=== PATIENT | female | born 1955 | race Caucasian/White ===

== ENCOUNTER → 2018-04-02 09:16 | Outpatient (CLI) | payer OTHER, SELFPAY ==
[2018-04-02 10:58] LABS: Anion Gap 8 (5-15); BUN 18 mg/dL (7-18); BUN/Creat Ratio 24.7 RATIO (10-20); Calcium,Total 8.4 mg/dL (8.5-10.1); Chloride 107 mmol/L (98-107); Cholesterol 197 mg/dL (200); Creatinine, Serum 0.73 mg/dL (0.55-1.02); EST Glomerular Filtration Rate 86 mL/min (>60); Est Glom Filt Rate - Afr Amer 104 mL/min (>60); Glucose 91 mg/dL (74-106); High Density Lipoprotein 63 mg/dL; Sodium Level 140 mmol/L (136-145); Thyroid Stim Hormone (TSH) 0.79 uIU/mL (0.358-3.74); Triglycerides 84 mg/dL; Very Low Density Lipoprotein 17 mg/dL (5-40)
== END ==
PROVIDERS: Family Provider Family Medicine; PCP Family Medicine; Visit Provider Nurse Practitioner Adult Health
DX: E03.9 Hypothyroidism, unspecified (principal); Z13.220 Encounter for screening for lipoid disorders; Z13.1 Encounter for screening for diabetes mellitus
CPT/HCPCS: 36415; 80048; 80061; 84443

== ENCOUNTER → 2018-05-20 07:16 | Outpatient (CLI) | payer OTHER, SELFPAY ==
--- NOTE | 2018-05-20 07:34 | BI_ITS ---
MAMMOGRAPHY - BILATERAL SCREENING REASON FOR EXAM: Female, 63 years old. Routine annual screening examination. PERTINENT HISTORY: Non-contributory. TECHNIQUE: Digital bilateral breast gaetano (3D mammographic acquisition) in the CC and MLO projections. 2-D mediolateral oblique (MLO) and craniocaudad (CC) views of both breasts were obtained. CAD: Full Field Digital Mammography with Computer Added Detection was performed. COMPARISON: Comparison is made with prior study dated April 16, 2017 and February 03, 2016. FINDINGS: Breast Composition: There are scattered areas of fibroglandular density. There are no dominant masses or suspicious calcifications. Stable small benign-appearing bilateral axillary lymph nodes. No other significant abnormalities are identified. There has been no significant change since the prior study. BI/SCREENING MAMM (CAD), BILAT IMPRESSION: Stable bilateral screening mammogram. Yearly follow-up mammogram recommended. (A) ASSESSMENT CATEGORY: BIRADS Category 2: Benign. A letter regarding these results will be sent to the patient by the facility within 30 days. Approximately 10% of breast cancers are not detected by mammography. A normal mammogram should not delay biopsy of a clinically suspicious abnormality. [id number] Electronically Signed: Real Pickens MD at 11:51 EST Tel [phone], Service support ,
== END ==
PROVIDERS: Family Provider Family Medicine; PCP Family Medicine; Referring Provider Nurse Practitioner Adult Health; Visit Provider Nurse Practitioner Adult Health
DX: Z12.31 Encounter for screening mammogram for malignant neoplasm of breast (principal)
CPT/HCPCS: 77063; 77067

== ENCOUNTER → 2018-11-22 | Outpatient (CLI) | payer OTHER, SELFPAY ==
[2018-11-22 10:25] LABS: Absolute Lymphocyte Count 1.77 X10^3/ul (0.83-4.51); Absolute Neutrophil Count 1.5 X10^3/uL (2.0-7.7); Basophil# 0.01 X10^3/uL; Basophil% 0.3 % (0-1); Eosinophil# 0.17 X10^3/uL; Eosinophils% 4.5 % (0-5); Hematocrit 42.2 % (37-47); Lymphocyte # 1.77 X10^3/ul (4.0); Lymphocyte % 47.1 % (19-41); Mean Corp Hgb Conc 33.2 g/gl (32-36); Mean Corpuscular Hgb 32.3 pg (27.0-32.0); Mean Corpuscular Volume 97.2 fL (81-99); Mean Platelet Vol. 11.2 fl (6.2-12.0); Monocyte# 0.32 X10^3/uL; Monocyte% 8.5 % (0-10); Neutrophil # 1.49 X10^3/uL (2.7-7.7); Neutrophil % 39.6 % (47-70); Platelet Count 240 K/mm3 (150-450); RBC Distribution Width CV 12.6 % (11.6-14.6); RBC Distribution Width SD 43.8 fl (35.1-43.9); Red Blood Count 4.34 M/mm3 (4.2-5.4); White Blood Count 3.8 K/mm3 (4.4-11.0)
[2018-11-22 10:37] LABS: POSITIVE COUNT NO; POSITIVE DIFFERENTIAL NO; POSITIVE MORPHOLOGY NO
[2018-11-22 10:38] LABS: Color, Urine Yellow (Yellow); Glucose, Dipstick Normal (Normal); Ketone-Dipstick Negative (Negative); Leukocyte Esterase-Dipstick 25 /ul (Negative); Nitrite-Dipstick Negative (Negative); Occult Blood-Urine 10 /ul (Negative); Protein-Dipstick Negative (Negative); Specific Gravity, Urine 1.025 (1.002-1.030); Urine Bilirubin Dipstick Negative (Negative); Urine Clarity Clear (Clear); Urine Urobilinogen Normal (Normal)
[2018-11-22 10:38] LABS: AST(SGOT) 14 U/L (15-37); Alanine Aminotransfer ALT/SGPT 18 U/L (13-56); Albumin, Serum 3.5 g/dL (3.2-5.0); Alkaline Phosphatase 61 U/L (45-117); Bilirubin, Direct 0.14 mg/dL (0.00-0.30); CRP, High Sensitivity Cardiac 3.52 mg/L; EST Glomerular Filtration Rate 77 mL/min (>60); Est Glom Filt Rate - Afr Amer 93 mL/min (>60); Globulin 3.9 g/dL (2.2-4.2); Protein, Total 7.4 g/dL (6.4-8.2)
[2018-11-22 10:41] LABS: Erythrocyte Sedimentation Rate 13 mm/hr (0-30)
[2018-11-24 16:22] LABS: Complement C3 125 mg/dL (82-167)
[2018-11-25 14:52] LABS: Anti-dsDNA Ab 1 IU/mL (0-9)
== END | disposition home or self-care (01) ==
LOC: MTLAB 08:22
PROVIDERS: Family Provider Family Medicine; PCP Family Medicine; Referring Provider Family Medicine; Visit Provider Family Medicine
DX: M06.4 Inflammatory polyarthropathy (principal); Z79.899 Other long term (current) drug therapy; R76.0 Raised antibody titer
CPT/HCPCS: 36415; 80076; 81002; 82565; 85025; 85652; 86141; 86160; 86225

== ENCOUNTER → 2019-05-26 12:00 | Outpatient (CLI) | payer MEDICARE, SELFPAY ==
--- NOTE | 2019-05-26 12:05 | BI_ITS ---
MAMMOGRAPHY - BILATERAL SCREENING REASON FOR EXAM: Female, 64 years old. Routine annual screening examination. PERTINENT HISTORY: Non-contributory. TECHNIQUE: Digital bilateral breast millicent (3D mammographic acquisition) in the CC and MLO projections. 2-D mediolateral oblique (MLO) and craniocaudad (CC) views of both breasts were obtained. CAD: Full Field Digital Mammography with Computer Added Detection was performed. COMPARISON: Comparison is made with prior study dated May 20, 2018 and April 16, 2017. FINDINGS: Breast Composition: There are scattered areas of fibroglandular density. There are no dominant masses or suspicious calcifications. There is a 6.7 mm well-defined nodule in the axillary region of the left breast most likely reflecting a small lymph node. No other significant abnormalities are identified. There has been no significant change since the prior study. BI/SCREEN MAMM (CAD) W/MILLICENT BILAT IMPRESSION: Stable bilateral screening mammogram. Yearly follow-up mammogram recommended. (A) ASSESSMENT CATEGORY: BIRADS Category 2: Benign. A letter regarding these results will be sent to the patient by the facility within 30 days. Approximately 10% of breast cancers are not detected by mammography. A normal mammogram should not delay biopsy of a clinically suspicious abnormality. [id number] Electronically Signed: Real Pickens, at 14:00 EST , Service support ,
== END ==
PROVIDERS: Family Provider Family Medicine; PCP Family Medicine; Referring Provider Nurse Practitioner Adult Health; Visit Provider Nurse Practitioner Adult Health
DX: Z12.31 Encounter for screening mammogram for malignant neoplasm of breast (principal)
CPT/HCPCS: 77063; 77067

== ENCOUNTER 2020-03-25 12:11 | Emergency (ER) | payer MEDICARE, SELFPAY ==
[2020-03-25 12:11] VITALS: BP 128/69; PULSE 94; RESP 16; TEMP 36.3; O2SAT 96; BMI 29.2
--- NOTE | 2020-03-25 12:22 | RAD_ITS ---
STUDY: X-RAY - LEFT WRIST REASON FOR EXAM: Female, 64 years old. Fell, pain TECHNIQUE: History view(s) of the wrist were obtained. COMPARISON: None. FINDINGS: Comminuted nondisplaced fracture of the distal radial metaphysis with extension to the articular surface. Avulsion fracture of the ulnar styloid. Normal radiocarpal articulation. Normal distal radioulnar articulation. Normal carpal bones. Normal carpal articulations. Normal carpometacarpal articulation of the thumb. Normal second through fifth carpometacarpal articulations. Normal visualized metacarpal bones. Soft tissue swelling. RAD/Wrist min 3 Views IMPRESSION: Nondisplaced condylar fracture of the distal radial metaphysis with extension of the articular surface. Avulsion fracture of the ulnar styloid. Soft tissue swelling. Electronically Signed: Real Pickens, at 12:43 EST , Service support ,
[2020-03-25] MEDS: HYDROmorphone 1 MG/ML Syringe IV (12:42)
--- NOTE | 2020-03-25 13:45 | ED.DCSUM_ITS ---
History of Present Illness Chief Complaint: Upper Extremity Injury Narrative: Patient sustained a mechanical fall while walking. She fell on her left wrist. She has no other injury. No head injury or loss consciousness Past Medical History - Allergies and Home Meds Allergies/Adverse Reactions: Allergies No Known Allergies Allergy (Verified 03/25/20 12:16) Primary Care Physician: Chepe Talamantes MD [Primary Care Provider] - Past Medical History: - - Noncontributory Smoking Status: Unknown if ever smoked Review of Systems General: Reports: - - No head injury no loss consciousness Musculoskeletal: Reports: Extremity Pain Skin: Denies: Wounds Neurological: Denies: Weakness, Parasthesia Hematologic: Denies: Easy bruising, Easy bleeding Physical Exam Vital Signs/Narrative: Vital Signs Temp Pulse Resp BP Pulse Ox 03/25/20 12:11 97.3 F L 94 16 128/69 H 96 General: Well nourished, Well developed Head: - - No C-spine tenderness no head injury ENT: Moist mucous membranes Neck: Supple Cardiovascular: Regular rate, Regular rhythm Respiratory: No distress Back: Normal Inspection Extremities: - - There is tenderness over the distal radius no obvious defo rmity. Skin: Normal color Neurological: Normal Strength, Normal Sensation Diagnostic/Tx/Re-eval Wrist x-ray read by me shows a distal radius fracture no displacement normal height - Medical Decision Making Patient was splinted I talked to orthopedics and she will be seen outpatient Procedures Procedure(s): Ortho-Glass splinting. An AP volar Ortho-Glass splint was placed by me ED Disposition - Plan for ED Patient: Disposition: Home or Assisted Living Diagnosis: Colles' fracture Instructions: ED WRIST FRACTURE General Prescriptions: Oxycodone HCl/Acetaminophen [Percocet 5/325] 1 tab PO Q6H PRN PRN 3 Days #12 tab PRN Reason: Pain Prescription Printed Referrals: Alexsander Wilson DO [STAFF PHYSICIAN] - 3-5 Days
== END 2020-03-25 14:00 | disposition home or self-care (01) ==
PROVIDERS: Emergency Provider Emergency Medicine; PCP Family Medicine
DX: S52.532A Colles' fracture of left radius, initial encounter for closed fracture (principal); W19.XXXA Unspecified fall, initial encounter; Y93.01 Activity, walking, marching and hiking; Y92.9 Unspecified place or not applicable
CPT/HCPCS: 29125; 73110; 96374; 99283

== ENCOUNTER 2020-03-29 13:44 | Day surgery (SDC) | payer MEDICARE, SELFPAY ==
[2020-03-29] VITALS (8 sets, daily range): BP systolic 106–143; BP diastolic 71–85; PULSE 76–91; RESP 16; TEMP 36.1–36.5; O2SAT 92–96; BMI 29.3
[2020-03-29] MEDS: Lactated Ringers 1,000 ML 100 ML IV (14:15)
[2020-03-29] MEDS: Cefazolin 2 GM in 0.9% Normal Saline 100 ML IV (17:07)
--- NOTE | 2020-03-29 17:15 | RAD_ITS ---
STUDY: X-RAY - LEFT WRIST REASON FOR EXAM: ORIF left wrist fracture. TECHNIQUE: 6 intraoperative images of the wrist were obtained. COMPARISON: Radiographs 03/25/2020. FINDINGS: There is an orthopedic plate and screws transfixing a distal radial fracture in anatomical alignment and position. Electronically Signed: Michael Gray MD at 14:56 EST Tel , Service support , RAD/Wrist min 3 Views
[2020-03-29] MEDS: Acetaminophen 500 MG Tablet 1000 MG PO (18:20)
--- NOTE | 2020-03-29 18:20 | PCM.OP.PRO ---
Procedure Report Date of Procedure: 03/29/20 Preoperative diagnosis: Left distal radius fracture comminuted Talamantes, 4 part Preoperative diagnosis: Same Operation: Open reduction internal fixation left distal radius fracture Surgeon: Dr. Arthur Webster Manager Software Development: Madeleine Bar PA-C Anesthesia general, axillary N block Anesthesiologist: Dr. Cannon Medications: Ancef Complications: None EBL: Less than 20 Indications for surgery: Please refer to dictated history and physical exam technical staff assistant, physician research study assistant was vital throughout the entire case. She help with patient positioning, reduction of fracture, maintenance of fracture reduction, exposure, plate and screw application and insertion, wound closure. Also with bandage and splint application. Without college sports assistant surgical time would have been increased. Surgical outcome could have been less optimal. Procedure: After obtaining appropriate informed consent patient was taken to the operating room. Appropriate timeout was performed. Well-padded tourniquet applied to the operative upper arm. Ancef given IV. SCDs on lower extremities. Patient placed under general anesthesia. Reduction was attempted. Adequate closed reduction could not be obtained or maintained. Operative upper extremity was prepped padded draped in usual orthopedic sterile fashion for the procedure. Tourniquet was applied to 250 mmHg after the limb was exsanguinated. Volar approach was carried out longitudinally just over the FCR tendon. Careful dissection through skin subcutaneous tissue brought us down onto the FCR tendon. We took the FCR tendon ulnarly and the radial artery and soft tissues radially. This brought us down onto the pronator quadratus. This was sharply dissected off the bone radially. Fracture site was identified. Multiple fracture fragments were identified felt to be at least a 4 part fracture we then irrigated. Traction and manipulation with the help of the research study assistant, fracture was nearly anatomically reduced. Volar AccuMed, Accu lock narrow long left VDR plate applied. And verified radiographically. Held in place with 2 K wires. We filled the distal row with locking screws in the plate under standard technique 6, 2.3 mm fully threaded locking screws were utilized. 1 screw had been placed at the slotted hole in the proximal plate, 3.5 mm appropriate length. Applied the plate to the bone proximally and held it in the slotted hole with one screw, nonlocking screw. X-ray taken AP lateral and oblique showing very nice reduction and placement of the hardware. 2 further nonlocking screws were placed in the proximal plate. We verified our reduction under multiple x-ray views multiple, many of which were saved. Screw guide system for the plate removed. Wound was irrigated. Tourniquet let down. Bleeding controlled with the Bovie. No undue bleeding noted. Pronator quadratus repaired with 2-0 Vicryl over the plate. Skin repaired with interrupted inverted 2-0 Vicryl. Skin prep and Steri-Strips applied. Well-padded volar splint and dorsal splint applied. Sling applied. She was awoken from her anesthetic and transferred back to room bed in recovery room in satisfactory condition. This note was generated with [employer] dictation software. It may contain incorrect words, spelling, and punctuation that were not noted in checking the note before signing.
== END 2020-03-29 20:32 | disposition home or self-care (01) ==
LOC: SDC 13:47 → AC 13:48
PROVIDERS: PCP Family Medicine; Referring Provider Orthopaedic Surgery; Visit Provider Orthopaedic Surgery
PROC: (CPT 25607; principal; 2020-03-29 15:15)
DX: S52.542A Smith's fracture of left radius, initial encounter for closed fracture (principal); W01.0XXA Fall on same level from slipping, tripping and stumbling without subsequent striking against object, initial encounter; Y93.9 Activity, unspecified; Y92.9 Unspecified place or not applicable
CPT/HCPCS: 01830; 25607; 73110; 76000; C1713; J7120; J2405

== ENCOUNTER → 2020-06-14 11:01 | Outpatient (CLI) | payer MEDICARE, SELFPAY ==
[2020-03-29 14:10] VITALS: BMI 29.3
[2020-06-14 13:20] LABS: Anion Gap 5 (5-15); BUN 14 mg/dL (7-18); BUN/Creat Ratio 19.4 RATIO (10-20); Calcium,Total 8.9 mg/dL (8.5-10.1); Chloride 106 mmol/L (98-107); Cholesterol 226 mg/dL (200); Creatinine, Serum 0.72 mg/dL (0.55-1.02); EST Glomerular Filtration Rate 86 mL/min (>60); Est Glom Filt Rate - Afr Amer 104 mL/min (>60); Glucose 80 mg/dL (74-106); High Density Lipoprotein 73 mg/dL; Potassium 4.2 mmol/L (3.5-5.1); Sodium Level 141 mmol/L (136-145); Thyroid Stim Hormone (TSH) 0.86 uIU/mL (0.358-3.74); Triglycerides 69 mg/dL; Very Low Density Lipoprotein 14 mg/dL (5-40)
== END ==
PROVIDERS: PCP Family Medicine; Referring Provider Nurse Practitioner Adult Health; Visit Provider Nurse Practitioner Adult Health
DX: E03.9 Hypothyroidism, unspecified (principal); Z13.220 Encounter for screening for lipoid disorders; Z13.1 Encounter for screening for diabetes mellitus
CPT/HCPCS: 36415; 80048; 80061; 84443

== ENCOUNTER → 2020-07-08 11:21 | Outpatient (CLI) | payer MEDICARE, SELFPAY ==
[2020-03-29 14:10] VITALS: BMI 29.3
--- NOTE | 2020-07-08 11:24 | BI_ITS ---
MAMMOGRAPHY - BILATERAL SCREENING REASON FOR EXAM: Female, 65 years old. Routine annual screening examination. PERTINENT HISTORY: Non-contributory. TECHNIQUE: Digital bilateral breast millicent (3D mammographic acquisition) in the CC and MLO projections. 2-D mediolateral oblique (MLO) and craniocaudad (CC) views of both breasts were obtained. CAD: Full Field Digital Mammography with Computer Added Detection was performed. COMPARISON: Comparison is made with prior study dated 05/26/2019 and 05/20/2018. FINDINGS: Breast Composition: There are scattered areas of fibroglandular density. There are no dominant masses or suspicious calcifications. Stable 6.7 mm well-defined nodule in the axillary region of the left breast most likely representing a small lymph node. No other significant abnormalities are identified. There has been no significant change since the prior study. BI/SCRN MAMM (CAD)W/MILLICENT BILAT IMPRESSION: Stable bilateral screening mammogram. Yearly follow-up mammogram recommended. (A) ASSESSMENT CATEGORY: BIRADS Category 2: Benign. A letter regarding these results will be sent to the patient by the facility within 30 days. Approximately 10% of breast cancers are not detected by mammography. A normal mammogram should not delay biopsy of a clinically suspicious abnormality. [id number] Electronically Signed: Real Pickens MD at 12:25 EST , Service support ,
== END ==
PROVIDERS: PCP Family Medicine; Referring Provider Nurse Practitioner Adult Health; Visit Provider Nurse Practitioner Adult Health
DX: Z12.31 Encounter for screening mammogram for malignant neoplasm of breast (principal)
CPT/HCPCS: 77063; 77067

== ENCOUNTER → 2020-12-23 08:13 | Outpatient (CLI) | payer MEDICARE, SELFPAY ==
[2020-03-29 14:10] VITALS: BMI 29.3
--- NOTE | 2020-12-23 08:16 | US_ITS ---
EXAM: US RETROPERITONEAL COMPLETE, RENAL CLINICAL INDICATION: right flank pain and elevated ESR TECHNIQUE: Grayscale and color Doppler sonographic evaluation of the retroperitoneum was performed. This report was created using [employer] report generation technology. COMPARISON: None. FINDINGS: RIGHT KIDNEY: Mild right hydronephrosis. No shadowing calculus. No perinephric collection is demonstrated. LEFT KIDNEY: Unremarkable. No hydronephrosis. No shadowing calculus. No focal lesion. No perinephric collection is demonstrated. BLADDER: Bilateral ureteral jets are confirmed. US/Kidney and Bladder IMPRESSION: Mild right hydronephrosis. Electronically Signed: Benny Boone MD ([place]) at 12:01 EDT , Service support ,
== END ==
PROVIDERS: PCP Family Medicine; Referring Provider Family Medicine; Visit Provider Family Medicine
DX: R10.9 Unspecified abdominal pain (principal)
CPT/HCPCS: 76770

== ENCOUNTER 2021-08-10 11:42 | Outpatient (CLI) | payer MEDICARE, SELFPAY ==
[2021-08-10 15:40] LABS: Anion Gap 7 (5-15); BUN 12 mg/dL (7-18); BUN/Creat Ratio 17.4 RATIO (10-20); Calcium,Total 9.4 mg/dL (8.5-10.1); Chloride 105 mmol/L (98-107); Creatinine, Serum 0.69 mg/dL (0.55-1.02); EST Glomerular Filtration Rate 90 mL/min (>60); Est Glom Filt Rate - Afr Amer 109 mL/min (>60); Glucose 81 mg/dL (74-106); Potassium 4.7 mmol/L (3.5-5.1); Sodium Level 137 mmol/L (136-145); Thyroid Stim Hormone (TSH) 1.71 uIU/mL (0.358-3.74)
== END 2021-08-10 23:59 | disposition home or self-care (01) ==
PROVIDERS: PCP Family Medicine; Referring Provider Family Medicine; Visit Provider Nurse Practitioner Family
DX: Z00.00 Encounter for general adult medical examination without abnormal findings (principal); E03.9 Hypothyroidism, unspecified
CPT/HCPCS: 36415; 80048; 84443

== ENCOUNTER 2021-08-25 14:10 | Outpatient (CLI) | payer MEDICARE, SELFPAY ==
--- NOTE | 2021-08-25 14:14 | BI_ITS ---
MAMMOGRAPHY - BILATERAL SCREENING REASON FOR EXAM: Female, 66 years old. Routine annual screening examination. PERTINENT HISTORY: Non-contributory. TECHNIQUE: Digital bilateral breast gaetano (3D mammographic acquisition) in the CC and MLO projections. 2-D mediolateral oblique (MLO) and craniocaudad (CC) views of both breasts were obtained. CAD: Full Field Digital Mammography with Computer Added Detection was performed. COMPARISON: Comparison is made with prior study dated 07/08/2020 and 05/26/2019. FINDINGS: Breast Composition: There are scattered areas of fibroglandular density. There are no dominant masses or suspicious calcifications. Stable 6.7 well-defined nodule in the axillary region of the left breast most likely representing a small lymph node. Stable benign-appearing bilateral axillary lymph nodes. No other significant abnormalities are identified. There has been no significant change since the prior study. BI/SCREENING MAMM (CAD), BILAT IMPRESSION: Stable bilateral screening mammogram. Yearly follow-up mammogram recommended. (A) ASSESSMENT CATEGORY: BIRADS Category 2: Benign. A letter regarding these results will be sent to the patient by the facility within 30 days. Approximately 10% of breast cancers are not detected by mammography. A normal mammogram should not delay biopsy of a clinically suspicious abnormality. [id number] Electronically Signed: Real Pickens MD at 15:22 EDT ,
--- NOTE | 2021-08-25 14:26 | BD_ITS ---
STUDY: DUAL ENERGY X-RAY ABSORPTIOMETRY / DXA REASON FOR EXAM: Female, 66 years old. M810. The patient is postmenopausal. TECHNIQUE: Bone Mineral Density (BMD) measurements of lumbar spine and bilateral hips were obtained. COMPARISON: Comparison is made with prior study dated 11/24/2014. FINDINGS: Lumbar Spine (L1-L4): g/cm2 (1.066) / T-score (0.2) / Z-score (2.1) Findings are suggestive of normal bone density with a low fracture risk. Left Femur Total: g/cm2 (0.849) / T-score (-0.8) / Z-score (0.6) Left Femoral Neck: g/cm2 (0.744) / T-score (-0.9) / Z-score (0.7) Right Femur Total: g/cm2 (0.837) / T-score (-0.9) / Z-score (0.5) Right Femoral Neck: g/cm2 (0.76) / T-score (-0.7) / Z-score (0.9) The T-Scores on the most recent prior examination were: Lumbar Spine (L1-L4): There has been worsening of bone density since the previous examination. Left Femur Total: which represents a worsening of 9%. Right Femur Total: which represents a worsening of 1.7%. BD/Dexa Bone Density Study IMPRESSION: The patient is considered normal as outlined below according to World Matthew Organization (WHO) criteria with a low fracture risk. There has been worsening of bone density since the previous examination. Reference Information: The T-score is the number of standard deviations above or below the standard which is normal for young adults at their peak bone mineral density. The World Health Organization (WHO) interprets the T-scores as follows: Above -1 Normal bone density Between -1 and -2.5 Osteopenia Equal to / or below -2.5 Osteoporosis As a practical clinical guideline, osteopenia may be graded as follows: Mild -1 through -1.5 Moderate -1.6 through -2.0 Severe -2.1 through -2.4 The Z-score is the number of standard deviations above or below age-matched controls. A Z-score of less than -1.5 would be considered abnormal. References: 1. NIH Osteoporosis and Related Bone Diseases www osteo.org 2. International Society for Clinical Densitometry www iscd.org 3. National Osteoporosis Foundation www nof.org Electronically Signed: Real Pickens MD at 15:31 EDT ,
== END 2021-08-25 23:59 | disposition home or self-care (01) ==
LOC: OPBD 14:11
PROVIDERS: PCP Family Medicine; Visit Provider Nurse Practitioner Family
DX: Z12.31 Encounter for screening mammogram for malignant neoplasm of breast (principal); M81.0 Age-related osteoporosis without current pathological fracture
CPT/HCPCS: 77067; 77080

== ENCOUNTER → 2021-12-05 | Outpatient (CLI) | payer MEDICARE, SELFPAY ==
[2021-12-05 10:50] LABS: Bacteria 0 SEEN /hpf (None Seen); Mucous, Urine 0 SEEN /hpf (<or=2+); Red Blood Cells-Urine 0 SEEN /hpf (0-5); Squamous Epithelial Cells - UA 0 SEEN /hpf (5-10); White Blood Cells 0 SEEN /hpf (0-5)
[2021-12-05 12:44] LABS: Color, Urine Yellow (Yellow); Glucose, Dipstick Normal (Normal); Ketone-Dipstick Negative (Negative); Leukocyte Esterase-Dipstick Negative /ul (Negative); Nitrite-Dipstick Negative (Negative); Occult Blood-Urine Negative /ul (Negative); Protein-Dipstick Negative (Negative); Specific Gravity, Urine 1.015 (1.002-1.030); Urine Bilirubin Dipstick Negative (Negative); Urine Clarity Sl. Cloudy (Clear); Urine Urobilinogen Normal (Normal)
== END | disposition home or self-care (01) ==
PROVIDERS: PCP Family Medicine; Referring Provider Internal Medicine Rheumatology; Visit Provider Internal Medicine Rheumatology
DX: N39.0 Urinary tract infection, site not specified (principal)
CPT/HCPCS: 81001

== ENCOUNTER → 2022-08-14 | Outpatient (CLI) | payer MEDICARE, SELFPAY ==
[2022-08-14 13:00] LABS: Anion Gap 4 (5-15); BUN 7 mg/dL (7-18); BUN/Creat Ratio 10.4 RATIO (10-20); Calcium,Total 8.8 mg/dL (8.5-10.1); Chloride 107 mmol/L (98-107); Cholesterol 153 mg/dL (200); Creatinine, Serum 0.68 mg/dL (0.55-1.02); EST Glomerular Filtration Rate 92 mL/min (>60); Est Glom Filt Rate - Afr Amer 111 mL/min (>60); Free T3 2.2 pg/mL (2.18-3.98); Glucose 89 mg/dL (74-106); High Density Lipoprotein 61 mg/dL; Potassium 3.6 mmol/L (3.5-5.1); Sodium Level 140 mmol/L (136-145); T4 Total, Thyroxin 14.9 ug/dL (4.8-13.9); Thyroid Stim Hormone (TSH) 0.39 uIU/mL (0.358-3.74); Triglycerides 94 mg/dL; Very Low Density Lipoprotein 19 mg/dL (5-40)
== END | disposition home or self-care (01) ==
LOC: MFPLAB 09:46
PROVIDERS: PCP Family Medicine; Visit Provider Nurse Practitioner Family
DX: E03.9 Hypothyroidism, unspecified (principal); Z13.220 Encounter for screening for lipoid disorders; Z13.1 Encounter for screening for diabetes mellitus
CPT/HCPCS: 36415; 80048; 80061; 84436; 84443; 84481

== ENCOUNTER → 2022-08-30 | Outpatient (CLI) | payer MEDICARE, SELFPAY ==
--- NOTE | 2022-08-30 07:57 | BI_ITS ---
MAMMOGRAPHY - BILATERAL SCREENING 3-D TOMOSYNTHESIS REASON FOR EXAM: Female, 67 years old. Routine screening PERTINENT HISTORY: No significant family history. TECHNIQUE: 2-D mammograms and 3-D Tomosynthesis of the breast (s) were performed. CAD was performed. COMPARISON: 07/08/2020 FINDINGS: The breast composition is composed of scattered fibroglandular density. Scattered benign calcifications are seen. No dense spiculated masses or suspicious microcalcifications are identified. No architectural distortion is identified. There is no skin thickening or retraction. There has been no significant change since the prior study. BI/SCRN MAMM (CAD)W/MILLICENT BILAT IMPRESSION: No mammographic signs of malignancy. Routine yearly mammograms recommended. ASSESSMENT CATEGORY: BIRADS Category 2: Benign. A letter regarding these results will be sent to the patient by the facility within 30 days. FOLLOW UP RECOMMENDATION: Yearly follow up mammogram recommended. (A) Approximately 10% of breast cancers are not detected by mammography. A normal mammogram should not delay biopsy of a clinically suspicious abnormality. Electronically Signed: Gomez Soares MD at 8:59 EDT ,
== END | disposition home or self-care (01) ==
PROVIDERS: PCP Family Medicine; Referring Provider Nurse Practitioner Family; Visit Provider Nurse Practitioner Family
DX: Z12.31 Encounter for screening mammogram for malignant neoplasm of breast (principal)
CPT/HCPCS: 77063; 77067

== ENCOUNTER → 2022-09-11 | Outpatient (CLI) | payer MEDICARE, SELFPAY ==
[2022-09-11 09:59] LABS: Absolute Lymphocyte Count 1.88 X10^3/uL (0.83-4.51); Absolute Neutrophil Count 2.1 X10^3/uL (2.0-7.7); Basophil# 0.02 X10^3/uL; Basophil% 0.4 % (0-1); Eosinophil# 0.22 X10^3/uL; Eosinophils% 4.8 % (0-5); Hematocrit 40.9 % (37-47); Lymphocyte # 1.88 X10^3/ul (0.83-4.51); Lymphocyte % 41.1 % (19-41); Mean Corp Hgb Conc 31.8 g/dL (32-36); Mean Corpuscular Hgb 31.9 pg (27.0-32.0); Mean Corpuscular Volume 100.5 fL (81-99); Mean Platelet Vol. 10.7 fl (6.2-12.0); Monocyte# 0.35 X10^3/uL; Monocyte% 7.7 % (0-10); NRBC Flagged by Analyzer 0 % (0-5); Neutrophil # 2.09 X10^3/uL (2.7-7.7); Neutrophil % 45.8 % (47-70); Platelet Count 213 K/mm3 (150-450); RBC Distribution Width CV 12.6 % (11.6-14.6); RBC Distribution Width SD 46.9 fl (35.1-43.9); Red Blood Count 4.07 M/mm3 (4.2-5.4); White Blood Count 4.6 K/mm3 (4.4-11.0)
== END | disposition home or self-care (01) ==
LOC: MTLAB 08:35
PROVIDERS: PCP Family Medicine; Referring Provider Internal Medicine Rheumatology; Visit Provider Internal Medicine Rheumatology
DX: D72.819 Decreased white blood cell count, unspecified (principal)
CPT/HCPCS: 36415; 85025

== ENCOUNTER → 2023-08-20 | Outpatient (CLI) | payer MEDICARE, SELFPAY ==
[2023-08-20 10:14] LABS: Hematocrit 40.5 % (37-47); Hemoglobin 13.1 g/dL (12.0-15.0); Mean Corp Hgb Conc 32.3 g/dL (32-36); Mean Corpuscular Hgb 32.3 pg (27.0-32.0); Mean Platelet Vol. 10.8 fl (6.2-12.0); Platelet Count 236 K/mm3 (150-450); RBC Distribution Width CV 12.2 % (11.6-14.6); RBC Distribution Width SD 45.1 fl (35.1-43.9); Red Blood Count 4.05 M/mm3 (4.2-5.4); White Blood Count 3.9 K/mm3 (4.4-11.0)
[2023-08-20 10:48] LABS: Anion Gap 4 (5-15); BUN 11 mg/dL (7-18); BUN/Creat Ratio 15.5 RATIO (10-20); Calcium,Total 8.6 mg/dL (8.5-10.1); Chloride 111 mmol/L (98-107); Cholesterol 192 mg/dL (200); Creatinine, Serum 0.71 mg/dL (0.55-1.02); EST Glomerular Filtration Rate 87 mL/min (>60); Est Glom Filt Rate - Afr Amer 105 mL/min (>60); Free T3 2.6 pg/mL (2.18-3.98); Glucose 91 mg/dL (74-106); High Density Lipoprotein 70 mg/dL; Sodium Level 143 mmol/L (136-145); T4 Free Direct 1.31 ng/dL (0.76-1.46); Triglycerides 105 mg/dL; Very Low Density Lipoprotein 21 mg/dL (5-40)
== END | disposition home or self-care (01) ==
LOC: MFPLAB 09:27
PROVIDERS: Nurse Practitioner Family; PCP Family Medicine; Visit Provider Family Medicine
DX: E03.9 Hypothyroidism, unspecified (principal); Z13.220 Encounter for screening for lipoid disorders
CPT/HCPCS: 36415; 80048; 80061; 84439; 84443; 84481; 85027

== ENCOUNTER → 2023-09-03 | Outpatient (CLI) | payer MEDICARE, SELFPAY ==
--- NOTE | 2023-09-03 09:55 | BI_ITS ---
MAMMOGRAPHY - BILATERAL SCREENING REASON FOR EXAM: Female, 68 years old. Routine annual screening examination. PERTINENT HISTORY: Non-contributory. TECHNIQUE: Digital bilateral breast millicent (3D mammographic acquisition) in the CC and MLO projections. 2-D mediolateral oblique (MLO) and craniocaudad (CC) views of both breasts were obtained. CAD: Full Field Digital Mammography with Computer Added Detection was performed. COMPARISON: Comparison is made with prior examination dated August 30, 2022 and August 25, 2021. FINDINGS: Breast Composition: The breasts are heterogeneously dense, which may obscure small masses. There are no dominant masses or suspicious calcifications. Stable small benign-appearing bilateral axillary lymph nodes. No other significant abnormalities are identified. There has been no significant change since the prior study. BI/SCRN MAMM (CAD)W/MILLICENT BILAT IMPRESSION: Stable bilateral screening mammogram. Yearly follow-up mammogram recommended. (A) ASSESSMENT CATEGORY: BIRADS Category 2: Benign. A letter regarding these results will be sent to the patient by the facility within 30 days. Approximately 10% of breast cancers are not detected by mammography. A normal mammogram should not delay biopsy of a clinically suspicious abnormality. [id number] Electronically Signed: Real Pickens MD at 11:24 EDT ,
== END | disposition home or self-care (01) ==
LOC: OPBI 09:55
PROVIDERS: PCP Family Medicine; Referring Provider Nurse Practitioner Family; Visit Provider Nurse Practitioner Family
DX: Z12.31 Encounter for screening mammogram for malignant neoplasm of breast (principal)
CPT/HCPCS: 77063; 77067

== ENCOUNTER → 2023-12-10 | Outpatient (CLI) | payer MEDICARE, SELFPAY ==
[2023-12-10 08:00] LABS: Bacteria 0 SEEN /hpf (None Seen); Mucous, Urine 0 SEEN /hpf (<or=2+); Red Blood Cells-Urine 0 SEEN /hpf (0-5); Squamous Epithelial Cells - UA 0 SEEN /hpf (5-10)
[2023-12-10 09:59] LABS: Color, Urine Yellow (Yellow); Glucose, Dipstick Normal (Normal); Ketone-Dipstick Negative (Negative); Leukocyte Esterase-Dipstick 25 /ul (Negative); Nitrite-Dipstick Negative (Negative); Occult Blood-Urine Negative /ul (Negative); Protein-Dipstick Negative (Negative); Specific Gravity, Urine 1.015 (1.002-1.030); Urine Bilirubin Dipstick Negative (Negative); Urine Clarity Clear (Clear); Urine Urobilinogen Normal (Normal)
[2023-12-10 10:27] LABS: White Blood Cells 0-5 SEEN /hpf (0-5)
== END | disposition home or self-care (01) ==
LOC: MTLAB 07:57
PROVIDERS: PCP Family Medicine; Referring Provider Family Medicine; Visit Provider Family Medicine
DX: R82.71 Bacteriuria (principal)
CPT/HCPCS: 81001; 87086

== ENCOUNTER → 2024-08-29 | Outpatient (CLI) | payer MEDICARE, SELFPAY ==
--- NOTE | 2024-08-29 09:07 | RAD_ITS ---
EXAM: XR Lumbosacral Spine, 2 or 3 Views CLINICAL INDICATION: LOW BACK PAIN TECHNIQUE: Frontal and lateral views of the lumbar spine and sacrum. COMPARISON: No relevant prior studies available. FINDINGS: VERTEBRAE: Moderate facet arthropathy of L2-S1. No acute fracture. Normal alignment. SACRUM/COCCYX: Unremarkable as visualized. No acute fracture. DISC SPACES: No acute findings. No significant narrowing. SOFT TISSUES: Unremarkable. VASCULATURE: Scattered calcified atherosclerotic disease of aorta. RAD/Lumbar Spine 2 or 3 Views IMPRESSION: Degenerative changes as above. Reading Location: [facility]
[2024-08-29 10:31] LABS: Erythrocyte Sedimentation Rate 6 mm/hr (0-30)
[2024-08-29 10:33] LABS: Absolute Lymphocyte Count 1.89 X10^3/uL (0.83-4.51); Absolute Neutrophil Count 2.2 X10^3/uL (2.0-7.7); Basophil# 0.04 X10^3/uL; Basophil% 0.8 % (0-1); Eosinophils% 4.2 % (0-5); Hematocrit 44.9 % (37-47); Hemoglobin 14.8 g/dL (12.0-15.0); Lymphocyte # 1.89 X10^3/ul (0.83-4.51); Lymphocyte % 39.4 % (19-41); Mean Corpuscular Hgb 33.3 pg (27.0-32.0); Mean Corpuscular Volume 100.9 fL (81-99); Mean Platelet Vol. 11.3 fl (6.2-12.0); Monocyte# 0.43 X10^3/uL; NRBC Flagged by Analyzer 0 % (0-5); Neutrophil # 2.23 X10^3/uL (2.7-7.7); Neutrophil % 46.4 % (47-70); POSITIVE MORPHOLOGY YES; Platelet Count 249 K/mm3 (150-450); RBC Distribution Width SD 45.2 fl (35.1-43.9); Red Blood Count 4.45 M/mm3 (4.2-5.4); White Blood Count 4.8 K/mm3 (4.4-11.0)
[2024-08-29 10:34] LABS: Differential Indicated SCAN CRITERIA MET
[2024-08-29 11:13] LABS: Vitamin D,25 Hydroxy 25.9 ng/mL (30-100)
[2024-08-29 11:25] LABS: ALB/GLOB Ratio 1.3 RATIO (0.9-2.4); AST(SGOT) 17 U/L (<=31); Alanine Aminotransfer ALT/SGPT 8 U/L (<=34); Albumin, Serum 4.3 g/dL (3.4-4.8); Alkaline Phosphatase 72 U/L (35-104); Anion Gap 11 (5-15); BUN 10 mg/dL (4-19); BUN/Creat Ratio 13.1 RATIO (10-20); Calcium,Total 9.2 mg/dL (7.6-11.0); Carbon Dioxide 26.7 mmol/L (21.0-32.0); Chloride 106 mmol/L (98-108); Creatinine, Serum 0.73 mg/dL (0.70-1.20); EST Glomerular Filtration Rate 89 (>60); Globulin 3.3 g/dL (2.2-4.2); Glucose 91 mg/dL (70-99); Potassium 4.2 mmol/L (3.3-5.1); Protein, Total 7.6 g/dL (5.9-8.4); Sodium Level 143 mmol/L (133-145); Total Bilirubin 0.33 mg/dL (0.00-1.30)
[2024-09-01 10:07] LABS: ANTINUCLEAR ANTIBODIES DIRECT Negative (Negative)
== END | disposition home or self-care (01) ==
PROVIDERS: PCP Family Medicine; Referring Provider Family Medicine; Visit Provider Family Medicine
DX: M54.50 Low back pain, unspecified (principal); M06.4 Inflammatory polyarthropathy; M85.80 Other specified disorders of bone density and structure, unspecified site
CPT/HCPCS: 36415; 72100; 80053; 82306; 85025; 85652; 86038; 86140

== ENCOUNTER 2024-12-12 07:24 | Day surgery (SDC) | payer MEDICARE, SELFPAY ==
[2024-12-12] VITALS (9 sets, daily range): BP systolic 110–141; BP diastolic 69–77; PULSE 87–100; RESP 16; TEMP 36.4–36.8; O2SAT 94–96; BMI 28.0
--- OUTSIDE RECORDS SUMMARY | 2024-12-12 07:29 | XMS RPT_ITS | CCD ---
Author Organization [facility] Care Team Providers Care Laundry Folder Name Role Phone LAYNE HIGUERA Attending Unavailable LAYNE HIGUERA Primary Care Unavailable LAYNE HIGUERA Admitting Unavailable CHERELLE POTTS DR Admitting Unavailable CHERELLE POTTS DR Primary Care Unavailable CHERELLE POTTS DR Attending Unavailable LAYNE HIGUERA Admitting Unavailable LAYNE HIGUERA Primary Care Unavailable LAYNE HIGUERA Attending Unavailable CHERELLE POTTS DR Attending Unavailable CHERELLE POTTS DR Admitting Unavailable CHERELLE OPTTS DR Primary Care Unavailable Albin BLOCK, Dr. Mo Primary Care Provider Dr. Chepe Talamantes MD Attending Provider Dr. Chepe Talamantes MD Referring Provider [phone] Chepe Talamantes Referring Unavailable Chepe Talamantes Attending Unavailable Chepe Talamantes Primary Care Unavailable Pollo Gibbons Attending Unavailable Chepe Talamantes Primary Care Unavailable Medications Current Medications Medication Drug Class(es) Dates Sig (Normalized) Sig (Original) celecoxib 200 mg oral capsule (7 sources) Nonsteroidal Anti-inflammatory Drug Start: 03-25-2020 take 1 capsule by mouth once daily Celecoxib 200 MG capsule Active 200 mg PO DAILY March 25, 2020 1:00am levothyroxine sodium 0.1 mg oral tablet (7 sources) l-Thyroxine Start: 03-25-2020 take 1 tablet by mouth once daily Levothyroxine 100 MCG tablet Active 100 ug PO DAILY March 25, 2020 1:00am Completed/Discontinued Medications Medication Drug Class(es) Dates Sig (Normalized) Sig (Original) acetaminophen 325 mg / oxyCODONE hydrochloride 5 mg oral tablet (7 sources) Opioid Agonist Start: 03-25-2020 End: 03-28-2020 Oxycodone-Acetamino phen 1 TABLET tablet Discontinued 1 {tbl} PO EVERY 6 HOURS NEEDED as needed for Pain 12 3 March 25, 2020 March 27, 2020 1:00am March 28, 2020 1:02am Start: 03-25-2020 End: 03-28-2020 take 1 tablet by mouth every six hours as needed Oxycodone-Acetaminophen Discontinued 1 TABLET PO EVERY 6 HOURS NEEDED 12 March 25, 2020 March 28, 2020 1:02am Problems Problem Classification Problem Date Documented Da te Episodic/Chronic Fracture of upper limb (7 sources) Colles' fracture; Translations: [Colles' fracture of unspecified radius, initial encounter for closed fracture] 03-26-2020 Episodic Immunizations and screening for infectious disease (3 sources) Encounter for screening for other viral diseases; Translations: [Encounter for screening for other viral diseases] Onset: 03-26-2020 Episodic Other aftercare (1 source) Other usp (current) drug therapy; Translations: [Other usp (current) drug therapy] Onset: 03-26-2020 Episodic Residual codes; unclassified (3 sources) Procedure and treatment not carried out, unspecified reason; Translations: [Procedure and treatment not carried out, unspecified reason] Onset: 03-29-2020 Episodic Unclassified (1 source) Low back pain, unspecified; Translations: [Low back pain, unspecified] Onset: 09-01-2024 Results Test Name Value Interpretation Reference Range Facility ANTINUCLEAR ANTIBODIES DIREC Ton 09-01-2024 MATTHIEU,DIRECT Negative Normal Negative [facility] Comment on above: Order Comment: Order Date: 08/21/24 Order Info: [id number] - MATTHIEU Result Comment: Perf ormed at: - [facility] [address] [id number] Assistant Facility Manager: Omar Connell PhD, Phone: [phone] Performed By: #### L 500.5528, L101.9900, L100.0100, L3100.9771, L501.6310 #### [facility] [address] [place], [address] MATTHIEU serumOrdered By: Chepe travis on 08-29-2024 Anti-Nuclear Antibody Screen Negative Negative [facility] Comment on above: Performed at: CB - [facility] [address] [id number] Director: Omar Connell PhD, Phone: [phone] Absolute neutrophil countOrd ered By: Chepe Talamantes on 08-29-2024 Neutrophils (Bld) [#/Vol] 2.2 10*3/uL 2.0-7.7 [facility] Anion gap in Serum or Plasma Ordered By: Chepe Talamantes on 08-29-2024 Anion gap [Moles/Vol] 11 mmol/L 5-15 [facility] BUN/creatinine ratioOrdered By: Chepe Talamantes on 08-29-2024 Urea nitrogen/Creatinine [Mass ratio] 13.1 mg/mg 10-20 [facility] Basophil percentageOrdered B y: Chepe Talamantes on 08-29-2024 Basophils/100 WBC (Bld) 0.8 % 0-1 [facility] Bilirubin, totalOrdered By: Chepe Talamantes on 08-29-2024 Bilirubin [Mass/Vol] 0.33 mg/dL 0.00-1.30 [facility] CBC W/Diff, Automatedon 08-19 Absolute Lymph 1.89 X10 3/uL Normal 0.83-4.51 [facility] Comment on above: Order Comment: Order Date: 08/21/24 Order Info: [id number] - CBCD Order Info: [id number] - SED Performed By: #### L 500.4050, L101.9900, L100.0100, L3100.5475, L501.6710 #### [facility] [address] [place], [address] Absolute Neut 2.2 X10 3/uL Normal 2.0-7.7 [facility] Comment on above: Order Comment: Order Date: 08/21/24 Order Info: [id number] - CBCD Order Info: [id number] - SED Performed By: #### L 500.4050, L101.9900, L100.0100, L3100.5475, L501.6710 #### [facility] [address] [place], [address] Basophils/100 WBC (Bld) 0.8 % Normal 0-1 [facility] Comment on above: Order Comment: Order Date: 08/21/24 Order Info: [id number] - CBCD Order Info: [id number] - SED Performed By: #### L 500.4050, L101.9900, L100.0100, L3100.5475, L501.6710 #### [facility] [address] [place], [address] Eosinophils/100 WBC (Bld) 4.2 % Normal 0-5 [facility] Comment on above: Order Comment: Order Date: 08/21/24 Order Info: [id number] - CBCD Order Info: [id number] - SED Performed By: #### L 500.4050, L101.9900, L100.0100, L3100.5475, L501.6710 #### [facility] [address] [place], [address] Erythrocyte distribution width (RBC) [Ratio] 12.0 % Normal 11.6-14.6 [facility] Comment on above: Order Comment: Order Date: 08/21/24 Order Info: 018- - CBCD Order Info: [id number] - SED Performed By: #### L 500.4050, L101.9900, L100.0100, L3100.5475, L501.6710 #### [facility] [address] [place], [address] Hematocrit (Bld) [Volume fraction] 44.9 % Normal 37-47 [facility] Comment on above: Order Comment: Order Date: 08/21/24 Order Info: 0184- - CBCD Order Info: [id number] - SED Performed By: #### L 500.4050, L101.9900, L100.0100, L3100.5475, L501.6710 #### [facility] [address] [place], [address] Hemoglobin (Bld) [Mass/Vol] 14.8 g/dL Normal 12.0-15.0 [facility] Comment on above: Order Comment: Order Date: 08/21/24 Order Info: [id number] - CBCD Order Info: [id number] - SED Performed By: #### L 500.4050, L101.9900, L100.0100, L3100.5475, L501.6710 #### [facility] [address] [place], [address] IG% 0.200 Normal 0.0-0.9 [facility] Comment on above: Order Comment: Order Date: 08/21/24 Order Info: [id number] - CBCD Order Info: [id number] - SED Result Comment: IG% - Immature Granulocytes (promyelocytes, myelocytes and metamyelocytes) > 1% indicates that a LEFT SHIFT is Present. Performed By: #### L 500.4050, L101.9900, L100.0100, L3100.5475, L501.6710 #### [facility] [address] [place], [address] Lymphocytes/100 WBC (Bld) 39.4 % Normal 19-41 [facility] Comment on above: Order Comment: Order Date: 08/21/24 Order Info: [id number] - CBCD Order Info: [id number] - SED Performed By: #### L 500.4050, L101.9900, L100.0100, L3100.5475, L501.6710 #### [facility] [address] [place], [address] MCH (RBC) [Entitic mass] 33.3 pg High 27.0-32.0 [facility] Comment on above: Order Comment: Order Date: 08/21/24 Order Info: [id number] - CBCD Order Info: [id number] - SED Performed By: #### L 500.4050, L101.9900, L100.0100, L3100.5475, L501.6710 #### [facility] [address] [place], [address] MCHC (RBC) [Mass/Vol] 33.0 g/dL Normal 32-36 [facility] Comment on above: Order Comment: Order Date: 08/21/24 Order Info: [id number] - CBCD Order Info: [id number] - SED Performed By: #### L 500.4050, L101.9900, L100.0100, L3100.5475, L501.6710 #### [facility] [address] [place], [address] MCV (RBC) [Entitic vol] 100.9 fL High 81-99 [facility] Comment on above: Order Comment: Order Date: 08/21/24 Order Info: 183- - CBCD Order Info: [id number] - SED Performed By: #### L 500.4050, L101.9900, L100.0100, L3100.5475, L501.6710 #### [facility] [address] [place], [address] Monocytes/100 WBC (Bld) 9.0 % Normal 0-10 [facility] Comment on above: Order Comment: Order Date: 08/21/24 Order Info: 018- - CBCD Order Info: [id number] - SED Performed By: #### L 500.4050, L101.9900, L100.0100, L3100.5475, L501.6710 #### [facility] [address] [place], [address] Neutrophils/100 WBC (Bld) 46.4 % Low 47-70 [facility] Comment on above: Order Comment: Order Date: 08/21/24 Order Info: 018- - CBCD Order Info: [id number] - SED Performed By: #### L 500.4050, L101.9900, L100.0100, L3100.5475, L501.6710 #### [facility] [address] [place], [address] Nucleated RBC (Bld) [#/Vol] 0 10*3/uL Normal 0-5 [facility] Comment on above: Order Comment: Order Date: 08/21/24 Order Info: 0184- - CBCD Order Info: [id number] - SED Performed By: #### L 500.4050, L101.9900, L100.0100, L3100.5475, L501.6710 #### [facility] [address] [place], [address] Platelet mean volume (Bld) [Entitic vol] 11.3 fL Normal 6.2-12.0 [facility] Comment on above: Order Comment: Order Date: 08/21/24 Order Info: 0184- - CBCD Order Info: [id number] - SED Performed By: #### L 500.4050, L101.9900, L100.0100, L3100.5475, L501.6710 #### [facility] [address] [place], [place], [address] (198) Platelets (Bld) [#/Vol] 249 10*3/uL Normal 150-450 [facility] Comment on above: Order Comment: Order Date: 08/21/24 Order Info: 0184- - CBCD Order Info: [id number] - SED Performed By: #### L 500.4050, L101.9900, L100.0100, L3100.5475, L501.6710 #### [facility] [address] [place], [place], [address] (652) RBC (Bld) [#/Vol] 4.45 10*6/uL Normal 4.2-5.4 [facility] Comment on above: Order Comment: Order Date: 08/21/24 Order Info: 0184- - CBCD Order Info: [id number] - SED Performed By: #### L 500.4050, L101.9900, L100.0100, L3100.5475, L501.6710 #### [facility] [address] [place], [place], [address] (677) RDW SD 45.2 fl High 35.1-43.9 [facility] Comment on above: Order Comment: Order Date: 08/21/24 Order Info: [id number] - CBCD Order Info: [id number] - SED Performed By: #### L 500.4050, L101.9900, L100.0100, L3100.5475, L501.6710 #### [facility] [address] [place], [address] WBC (Bld) [#/Vol] 4.8 10*3/uL Normal 4.4-11.0 [facility] Comment on above: Order Comment: Order Date: 08/21/24 Order Info: [id number] - CBCD Order Info: [id number] - SED Performed By: #### L 500.4050, L101.9900, L100.0100, L3100.5475, L501.6710 #### [facility] [address] [place], [address] CRPon 08-29-2024 C-REACTIVE PROT 7.80 mg/L High 0.0-3.0 [facility] Comment on above: Order Comment: Order Date: 08/21/24 Order Info: [id number] - CMP Order Info: [id number] - CRP Performed By: #### L 500.4050, L101.9900, L100.0100, L3100.5475, L501.6710 #### [facility] [address] [place], [address] CRP [Mass/Vol]Ordered By: Dain Talamantes on 08-29-2024 C-Reactive Protein Extended Range 7.80 mg/L High 0.0-3.0 [facility] Carbon dioxide, total [Moles /volume] in Central venous bloodOrdered By: Chepe Talamantes on 08-29-2024 CO2 [Moles/Vol] 26.7 mmol/L 21.0-32.0 [facility] Chloride assayOrdered By: Dain Talamantes on 08-29-2024 Chloride [Moles/Vol] 106 mmol/L 98-108 [facility] Comprehensive Metabolic Prof ilon 08-29-2024 Albumin [Mass/Vol] 4.3 g/dL Normal 3.4-4.8 [facility] Comment on above: Order Comment: Order Date: 08/21/24 Order Info: [id number] - CMP Order Info: [id number] - CRP Performed By: #### L 500.4050, L101.9900, L100.0100, L3100.5475, L501.6710 #### [facility] [address] [place], [address] Albumin/Globulin [Mass ratio] 1.3 {ratio} Normal 0.9-2.4 [facility] Comment on above: Order Comment: Order Date: 08/21/24 Order Info: [id number] - CMP Order Info: [id number] - CRP Performed By: #### L 500.4050, L101.9900, L100.0100, L3100.5475, L501.6710 #### [facility] [address] [place], [address] ALK PHOS 72 U/L Normal 35-104 [facility] Comment on above: Order Comment: Order Date: 08/21/24 Order Info: 0786-1 - CMP Order Info: [id number] - CRP Performed By: #### L 500.4050, L101.9900, L100.0100, L3100.5475, L501.6710 #### [facility] [address] [place], [address] ALT [Catalytic activity/Vol] 8 U/L Normal <=34 [facility] Comment on above: Order Comment: Order Date: 08/21/24 Order Info: 0786-1 - CMP Order Info: [id number] - CRP Performed By: #### L 500.4050, L101.9900, L100.0100, L3100.5475, L501.6710 #### [facility] [address] [place], [address] AST [Catalytic activity/Vol] 17 U/L Normal <=31 [facility] Comment on above: Order Comment: Order Date: 08/21/24 Order Info: 0786-1 - CMP Order Info: [id number] - CRP Performed By: #### L 500.4050, L101.9900, L100.0100, L3100.5475, L501.6710 #### [facility] [address] [place], [address] Bilirubin [Mass/Vol] 0.33 mg/dL Normal 0.00-1.30 [facility] Comment on above: Order Comment: Order Date: 08/21/24 Order Info: 0786-1 - CMP Order Info: [id number] - CRP Performed By: #### L 500.4050, L101.9900, L100.0100, L3100.5475, L501.6710 #### [facility] [address] [place], [address] BUN/CRE 13.1 RATIO Normal 10-20 [facility] Comment on above: Order Comment: Order Date: 08/21/24 Order Info: 0786-1 - CMP Order Info: [id number] - CRP Performed By: #### L 500.4050, L101.9900, L100.0100, L3100.5475, L501.6710 #### [facility] [address] [place], [address] Calcium [Mass/Vol] 9.2 mg/dL Normal 7.6-11.0 [facility] Comment on above: Order Comment: Order Date: 08/21/24 Order Info: 0786-1 - CMP Order Info: [id number] - CRP Performed By: #### L 500.4050, L101.9900, L100.0100, L3100.5475, L501.6710 #### [facility] [address] [place], [address] Chloride [Moles/Vol] 106 mmol/L Normal 98-108 [facility] Comment on above: Order Comment: Order Date: 08/21/24 Order Info: 0786-1 - CMP Order Info: [id number] - CRP Performed By: #### L 500.4050, L101.9900, L100.0100, L3100.5475, L501.6710 #### [facility] [address] [place], [address] CO2 [Moles/Vol] 26.7 mmol/L Normal 21.0-32.0 [facility] Comment on above: Order Comment: Order Date: 08/21/24 Order Info: 0786-1 - CMP Order Info: [id number] - CRP Performed By: #### L 500.4050, L101.9900, L100.0100, L3100.5475, L501.6710 #### [facility] [address] [place], [place], [address] Creatinine [Mass/Vol] 0.73 mg/dL Normal 0.70-1.20 [facility] Comment on above: Order Comment: Order Date: 08/21/24 Order Info: 0786-1 - CMP Order Info: [id number] - CRP Performed By: #### L 500.4050, L101.9900, L100.0100, L3100.5475, L501.6710 #### [facility] [address] [place], [address] GAP 11 Normal 5-15 [facility] Comment on above: Order Comment: Order Date: 08/21/24 Order Info: 0786-1 - CMP Order Info: [id number] - CRP Performed By: #### L 500.4050, L101.9900, L100.0100, L3100.5475, L501.6710 #### [facility] [address] [place], [address] GFR/1.73 sq M.predicted among non-blacks MDRD (S/P/Bld) [Vol rate/Area] 89 mL/min/{1.73_m2} Normal >60 [facility] Comment on above: Order Comment: Order Date: 08/21/24 Order Info: 0786-1 - CMP Order Info: [id number] - CRP Result Comment: mL/m in/1.73m2 CKD-EPI Creatinine Equation (2020) Performed By: #### L 500.4050, L101.9900, L100.0100, L3100.5475, L501.6710 #### [facility] [address] [place], [address] Globulin (S) [Mass/Vol] 3.3 g/dL Normal 2.2-4.2 [facility] Comment on above: Order Comment: Order Date: 08/21/24 Order Info: 0786-1 - CMP Order Info: [id number] - CRP Performed By: #### L 500.4050, L101.9900, L100.0100, L3100.5475, L501.6710 #### [facility] [address] [place], [address] Glucose [Mass/Vol] 91 mg/dL Normal 70-99 [facility] Comment on above: Order Comment: Order Date: 08/21/24 Order Info: 0786-1 - CMP Order Info: [id number] - CRP Performed By: #### L 500.4050, L101.9900, L100.0100, L3100.5475, L501.6710 #### [facility] [address] [place], [address] Potassium [Moles/Vol] 4.2 mmol/L Normal 3.3-5.1 [facility] Comment on above: Order Comment: Order Date: 08/21/24 Order Info: 0786-1 - CMP Order Info: [id number] - CRP Performed By: #### L 500.4050, L101.9900, L100.0100, L3100.5475, L501.6710 #### [facility] [address] [place], [place], [address] Sodium [Moles/Vol] 143 mmol/L Normal 133-145 [facility] Comment on above: Order Comment: Order Date: 08/21/24 Order Info: [id number] - CMP Order Info: [id number] - CRP Performed By: #### L 500.4050, L101.9900, L100.0100, L3100.5475, L501.6710 #### [facility] [address] [place], [place], [id number] T PROT 7.6 g/dL Normal 5.9-8.4 [facility] Comment on above: Order Comment: Order Date: 08/21/24 Order Info: [id number] - CMP Order Info: [id number] - CRP Performed By: #### L 500.4050, L101.9900, L100.0100, L3100.5475, L501.6710 #### [facility] [address] [place], [place], [address] Urea nitrogen [Mass/Vol] 10 mg/dL Normal 4-19 [facility] Comment on above: Order Comment: Order Date: 08/21/24 Order Info: [id number] - CMP Order Info: [id number] - CRP Performed By: #### L 500.4050, L101.9900, L100.0100, L3100.5475, L501.6710 #### [facility] [address] [place], [place], [id number] Eosinophil percentageOrdered By: Chepe Talamantes on 08-29-2024 Eosinophils/100 WBC (Bld) 4.2 % 0-5 [facility] Erythrocyte Sed Rateon 08-29 SED RATE 6 mm/hr Normal 0-30 [facility] Comment on above: Order Comment: Order Date: 08/21/24 Order Info: [id number] - CBCD Order Info: [id number] - SED Performed By: #### L 500.4050, L101.9900, L100.0100, L3100.5475, L501.6710 #### [facility] [address] [place] [place], [address] Erythrocyte distribution wid th (RBC) [Ratio]Ordered By: Chepe Talamantes on 08-29-2024 Erythrocyte distribution width (RBC) [Entitic vol] 45.2 fL High 35.1-43.9 [facility] Erythrocyte distribution wid th ratioOrdered By: Chepe Talamantes on 08-29-2024 Erythrocyte distribution width (RBC) [Ratio] 12.0 % 11.6-14.6 [facility] Erythrocyte sedimentation ra teOrdered By: Chepe Talamantes on 08-29-2024 ESR (Bld) [Velocity] 6 mm/h 0-30 [facility] GFR/1.73 sq M.predicted helen g non-blacks MDRD (S/P/Bld) [Vol rate/Area]Ordered By: Chepe Talamantes on 08-29-2024 Estimated GFR (MDRD) Non-Af Amer 89 >60 [facility] Comment on above: mL/min/1.73m2 CKD-EP I Creatinine Equation (2020) Hematocrit Auto (Bld) [Volum e fraction]Ordered By: Chepe Talamantes on 08-29-2024 Hematocrit (Bld) [Volume fraction] 44.9 % 37-47 [facility] Hemoglobin measurementOrdere d By: Chepe Talamantes on 08-29-2024 Hemoglobin (Bld) [Mass/Vol] 14.8 g/dL 12.0-15.0 [facility] Immature granulocytes/100 WB C Auto (Bld)Ordered By: Chepe Talamantes on 08-29-2024 Immature granulocytes/100 WBC (Bld) 0.200 % 0.0-0.9 [facility] Comment on above: IG% - Immature Granu locytes (promyelocytes, myelocytes and metamyelocytes) > 1% indicates that a LEFT SHIFT is Present. Laboratory - Chemistry and C hemistry - challengeOrdered By: Chepe Talamantes on 08-29-2024 AST [Catalytic activity/Vol] 17 U/L <32 [facility] Lumbar Spine 2 or 3 Viewson 08-29-2024 Lumbar Spine 2 or 3 Views [facility] [address] [place] [address] Lumbar Spine 2 or 3 Views MR#: [id number] Acct: [id number] Name: CLOVER BOGGS Rep #: [id number] : 1955 F 69 From: Roberth Lazaro MD PCP: Dr. Chepe Talamantes MD Status: REG CLI Study: Lumbar Spine 2 or 3 Views Date of Exam: Exam# [id number] Ordering Dr: Chepe Talamantes MD EXAM: XR Lumbosacral Spine, 2 or 3 Views CLINICAL INDICATION: LOW BACK PAIN TECHNIQUE: Frontal and lateral views of the lumbar spine and sacrum. COMPARISON: No relevant prior studies available. FINDINGS: VERTEBRAE: Moderate facet arthropathy of L2-S1. No acute fracture. Normal alignment. SACRUM/COCCYX: Unremarkable as visualized. No acute fracture. DISC SPACES: No acute findings. No significant narrowing. SOFT TISSUES: Unremarkable. VASCULATURE: Scattered calcified atherosclerotic disease of aorta. RAD/Lumbar Spine 2 or 3 Views IMPRESSION: Degenerative changes as above. Reading Location: [facility] CC: Dr. Chepe Talamantes MD Quality Improvement Coordinator: Signed Normal [facility] Lymphocytes Auto (Unsp spec) [#/Vol]Ordered By: Chepe Talamantes on 08-29-2024 Lymphocytes (Bld) [#/Vol] 1.89 10*3/uL 0.83-4.5 1 [facility] Lymphocytes/100 WBC Auto (Un sp spec)Ordered By: Chepe Talamantes on 08-29-2024 Lymphocytes/100 WBC (Bld) 39.4 % 19-41 [facility] MCV (mean corpuscular volume ) determinationOrdered By: Chepe Talamantes on 08-29-2024 MCV (RBC) [Entitic vol] 100.9 fL High 81-99 [facility] Mean corpuscular hemoglobin (MCH) determinationOrdered By: Chepe Talamantes on 08-29-2024 MCH (RBC) [Entitic mass] 33.3 pg High 27.0-32.0 [facility] Mean corpuscular hemoglobin concentration (MCHC) determinationOrdered By: Chepe Talamantes on 08-29-2024 MCHC (RBC) [Mass/Vol] 33.0 g/dL 32-36 [facility] Mean platelet volume determi nationOrdered By: Chepe Talamantes on 08-29-2024 Platelet mean volume (Bld) [Entitic vol] 11.3 fL 6.2-12.0 [facility] Monocyte percentageOrdered B y: Chepe Talamantes on 08-29-2024 Monocytes/100 WBC (Bld) 9.0 % 0-10 [facility] Neutrophil percentageOrdered By: Chepe Talamantes on 08-29-2024 Neutrophils/100 WBC (Bld) 46.4 % Low 47-70 [facility] Nucleated red blood cell per centageOrdered By: Chepe Talamantes on 08-29-2024 Nucleated RBC/100 WBC (Bld) [Ratio] 0 % 0-5 [facility] Platelet countOrdered By: Dain Talamantes on 08-29-2024 Platelets (Bld) [#/Vol] 249 10*3/uL 150-450 [facility] Potassium (Unsp spec) [Mass/ Vol]Ordered By: Chepe Talamantes on 08-29-2024 Potassium [Moles/Vol] 4.2 mmol/L 3.3-5.1 [facility] [facility] RBC Auto (Bld) [#/Vol]Ordere d By: Chepe Talamantes on 08-29-2024 RBC (Bld) [#/Vol] 4.45 10*6/uL 4.2-5.4 [facility] Serum creatinine measurement (mass/volume)Ordered By: Chepe Talamantes on 08-29-2024 Creatinine [Mass/Vol] 0.73 mg/dL 0.70-1.20 [facility] Serum globulin measurementOr dered By: Chepe Talamantes on 08-29-2024 Globulin (S) [Mass/Vol] 3.3 g/dL 2.2-4.2 [facility] Serum glucose measurement (m ass/volume)Ordered By: Chepe Talamantes on 08-29-2024 Glucose [Mass/Vol] 91 mg/dL 70-99 [facility] Serum or plasma alanine brown otransferase (ALT) measurementOrdered By: Chepe Talamantes on 08-29-2024 ALT [Catalytic activity/Vol] 8 U/L <35 [facility] Serum or plasma albumin christine urement (mass/volume)Ordered By: Chepe Talamantes on 08-29-2024 Albumin [Mass/Vol] 4.3 g/dL 3.4-4.8 [facility] Serum or plasma albumin/glob ulin mass ratioOrdered By: Chepe Talamantes on 08-29-2024 Albumin/Globulin [Mass ratio] 1.3 {ratio} 0.9-2.4 [facility] Serum or plasma alkaline leticia sphatase measurementOrdered By: Chepe Talamantes on 08-29-2024 ALP [Catalytic activity/Vol] 72 U/L 35-104 [facility] Serum or plasma calcium christine urement (mass/volume)Ordered By: Chepe Talamantes on 08-29-2024 Calcium [Mass/Vol] 9.2 mg/dL 7.6-11.0 [facility] Serum or plasma urea nitroge n measurement (mass/volume)Ordered By: Chepe Talamantes on 08-29-2024 Urea nitrogen [Mass/Vol] 10 mg/dL 4-19 [facility] Sodium levelOrdered By: Chepe Talamantes on 08-29-2024 Sodium [Moles/Vol] 143 mmol/L 133-145 [facility] Total proteinOrdered By: Cesia Talamantes on 08-29-2024 Protein [Mass/Vol] 7.6 g/dL 5.9-8.4 [facility] Vitamin D, 25-hydroxyOrdered By: Chepe Talamantes on 08-29-2024 Vitamin D 25-Hydroxy 25.9 ng/mL Low 30-100 [facility] Comment on above: Vitamin D StatusDefi ciency: <20 ng/mL (50nmol/L)Insufficiency: 20-30 ng/mL (50-75 nmol/L)Sufficiency: 30-100 ng/mL (75-250 nmol/L)Toxicity: >100 ng/mL (>250 nmol/L) Vitamin D,25 Hydroxyon 08-29 Vitamin D 25-OH 25.9 ng/mL Low 30-100 [facility] Comment on above: Order Comment: Order Date: 08/21/24 Order Info: [id number] - CMP Order Info: [id number] - CRP Result Comment: Brianna min D Status Deficiency: <20 ng/mL (50nmol/L) Insufficiency: 20-30 ng/mL (50-75 nmol/L) Sufficiency: 30-100 ng/mL (75-250 nmol/L) Toxicity: >100 ng/mL (>250 nmol/L) Performed By: #### L [phone] #### [facility] [address] [place], [address] White blood cell (WBC) count Ordered By: Cheep Talamantes on 08-29-2024 WBC (Bld) [#/Vol] 4.8 10*3/uL 4.4-11.0 [facility] Basophil percentageOrdered B y: Pratima Woods on 08-20-2023 Chloride [Moles/Vol] 111 mmol/L 98-107 [facility] Cholesterol [Mass/Vol] 192 mg/dL <200 [facility] Comment on above: <200 mg/dL Desirable 200-240 mg/dL Borderline >240 mg/dL High Risk Glucose [Mass/Vol] 91 mg/dL 74-106 [facility] Hemoglobin (Bld) [Mass/Vol] 13.1 g/dL 12.0-15.0 [facility] Potassium [Moles/Vol] 4.0 mmol/L 3.5-5.1 [facility] Sodium [Moles/Vol] 143 mmol/L 136-145 [facility] Triglyceride [Mass/Vol] 105 mg/dL <199 [facility] Comment on above: The drugs N-Acetylcy steine and Metamizole may falsely depress this assay.Serum Triglycerides Reference Interval Normal <150 mg/dL Borderline high 150 - 199 mg/dL High 200 - 499 mg/dL Very High > or = 500 mg/dL WBC (Bld) [#/Vol] 3.9 10*3/uL 4.4-11.0 [facility] Determination of erythrocyte mean corpuscular volume (MCV)Ordered By: Pratima Woods on 08-20-2023 MCV (RBC) [Entitic vol] 100.0 fL 81-99 [facility] Erythrocyte distribution wid th ratioOrdered By: Pratimalisha Woods on 08-20-2023 Erythrocyte distribution width (RBC) [Ratio] 12.2 % 11.6-14.6 [facility] Erythrocyte distribution wid th standard deviationOrdered By: Pratima Woods on 08-20-2023 Erythrocyte distribution width (RBC) [Entitic vol] 45.1 fL 35.1-43.9 [facility] Hematocrit Auto (Bld) [Volum e fraction]Ordered By: Pratima Woods on 08-20-2023 Hematocrit (Bld) [Volume fraction] 40.5 % 37-47 [facility] - Chemistry and C hemistry - challengeOrdered By: Pratima Woods on 08-20-2023 Cholesterol in HDL [Mass/Vol] 70 mg/dL >40 [facility] Comment on above: The drugs N-Acetylcy steine and Metamizole may falsely depress this assay. Reference Range HDL <40 mg/dL Low HDL Cholesterol HDL >or= 60 mg/dL High HDL Cholesterol Cholesterol in LDL [Mass/Vol] 101 mg/dL 0-130 [facility] CO2 [Moles/Vol] 28.0 mmol/L 21.0-32.0 [facility] Urea nitrogen/Creatinine [Mass ratio] 15.5 mg/mg 10-20 [facility] - Hematology and Cell countsOrdered By: Pratima Woods on 08-20-2023 MCH (RBC) [Entitic mass] 32.3 pg 27.0-32.0 [facility] MCHC (RBC) [Mass/Vol] 32.3 g/dL 32-36 [facility] Platelet mean volume (Bld) [Entitic vol] 10.8 fL 6.2-12.0 [facility] Platelets (Bld) [#/Vol] 236 10*3/uL 150-450 [facility] No Panel InformationOrdered By: Pratima Woods on 08-20-2023 Estimated GFR (MDRD) Amer 105 mL/min >60 [facility] Comment on above: GFR Calc Estimated GFR (MDRD) Non-Af Amer 87 mL/min >60 [facility] Comment on above: Non- GFR Calc Free Triiodothyronine (T3) pg/dL 2.6 pg/mL 2.18-3.98 [facility] VLDL Cholesterol 21 mg/dL 5-40 [facility] RBC Auto (Bld) [#/Vol]Ordere d By: Pratima Woods on 08-20-2023 RBC (Bld) [#/Vol] 4.05 10*6/uL 4.2-5.4 [facility] Serum or plasma calcium christine urement (mass/volume)Ordered By: Pratima Woods on 08-20-2023 Calcium [Mass/Vol] 8.6 mg/dL 8.5-10.1 [facility] Serum or plasma creatinine m easurement (mass/volume)Ordered By: Pratima Woods on 08-20-2023 Creatinine [Mass/Vol] 0.71 mg/dL 0.55-1.02 [facility] Comment on above: The validity of the calculated GFR & GFRAA in patients over 70 years has not been determined. Clinical correlation is essential. Serum or plasma thyroid stim ulating hormone (TSH) measurement (units/volume)Ordered By: Pratima Woods on 08-20-2023 TSH Qn 1.20 uIU/mL 0.358-3.74 [facility] Serum or plasma urea nitroge n measurement (mass/volume)Ordered By: Pratimalisha Woods on 08-20-2023 Urea nitrogen [Mass/Vol] 11 mg/dL 7-18 [facility] Thin prep Papanicolaou smear with manual screeningOrdered By: Pratima Woods on 08-20-2023 Thin prep Papanicolaou smear with manual screening 4 5-15 [facility] Thin prep Papanicolaou smear with manual screening 1.31 ng/dL 0.76-1.46 [facility] Absolute lymphocyte countOrd ered By: Dr. Edge on 09-11-2022 Lymphocytes Auto (Unsp spec) [#/Vol] 1.88 10*3/uL 0.83-4.51 [facility] Basophil percentageOrdered B y: Dr. Edge on 09-11-2022 Basophils/100 WBC (Bld) 0.4 % 0-1 [facility] Eosinophils/100 WBC (Bld) 4.8 % 0-5 [facility] Neutrophils (Bld) [#/Vol] 2.1 10*3/uL 2.0-7.7 [facility] Neutrophils/100 WBC (Bld) 45.8 % 47-70 [facility] WBC (Bld) [#/Vol] 4.6 10*3/uL 4.4-11.0 [facility] Blood erythrocytes count (nu mber/volume)Ordered By: Dr. Edge on 09-11-2022 RBC (Bld) [#/Vol] 4.07 10*6/uL 4.2-5.4 [facility] Blood hemoglobin measurement (mass/volume)Ordered By: Dr. Edge on 09-11-2022 Hemoglobin (Bld) [Mass/Vol] 13.0 g/dL 12.0-15.0 [facility] Blood lymphocytes/100 leukoc ytesOrdered By: Dr. Edge on 09-11-2022 Lymphocytes/100 WBC (Bld) 41.1 % 19-41 [facility] Blood monocytes/100 leukocyt esOrdered By: Dr. Edge on 09-11-2022 Monocytes/100 WBC (Bld) 7.7 % 0-10 [facility] Blood platelet mean volumeOr dered By: Dr. Edge on 09-11-2022 Platelet mean volume (Bld) [Entitic vol] 10.7 fL 6.2-12.0 [facility] Determination of erythrocyte mean corpuscular volume (MCV)Ordered By: Dr. Edge on 09-11-2022 MCV (RBC) [Entitic vol] 100.5 fL 81-99 [facility] Hematocrit Auto (Bld) [Volum e fraction]Ordered By: Dr. Edge on 09-11-2022 Hematocrit (Bld) [Volume fraction] 40.9 % 37-47 [facility] - Hematology and Cell countsOrdered By: Dr. Edge on 09-11-2022 Erythrocyte distribution width (RBC) [Entitic vol] 46.9 fL 35.1-43.9 [facility] Erythrocyte distribution width (RBC) [Ratio] 12.6 % 11.6-14.6 [facility] Immature granulocytes/100 WBC (Bld) 0.200 % 0.0-0.9 [facility] Comment on above: IG% - Immature Granu locytes (promyelocytes, myelocytes and metamyelocytes) > 1% indicates that a LEFT SHIFT is Present. MCH (RBC) [Entitic mass] 31.9 pg 27.0-32.0 [facility] Nucleated RBC/100 WBC (Bld) [Ratio] 0 % 0-5 [facility] MCHC Auto (RBC) [Mass/Vol]Or dered By: Dr. Edge on 09-11-2022 MCHC (RBC) [Mass/Vol] 31.8 g/dL 32-36 [facility] Platelets bldOrdered By: Dr. Edge on 09-11-2022 Platelets (Bld) [#/Vol] 213 10*3/uL 150-450 [facility] Basophil percentageOrdered B y: Darshana España on 08-14-2022 Chloride [Moles/Vol] 107 mmol/L 98-107 [facility] Cholesterol [Mass/Vol] 153 mg/dL <200 [facility] Comment on above: <200 mg/dL Desirable 200-240 mg/dL Borderline >240 mg/dL High Risk Glucose [Mass/Vol] 89 mg/dL 74-106 [facility] Potassium [Moles/Vol] 3.6 mmol/L 3.5-5.1 [facility] Sodium [Moles/Vol] 140 mmol/L 136-145 [facility] Triglyceride [Mass/Vol] 94 mg/dL <199 [facility] Comment on above: The drugs N-Acetylcy steine and Metamizole may falsely depress this assay.Serum Triglycerides Reference Interval Normal <150 mg/dL Borderline high 150 - 199 mg/dL High 200 - 499 mg/dL Very High > or = 500 mg/dL Laboratory - Chemistry and C hemistry - challengeOrdered By: Darshana España on 08-14-2022 CO2 [Moles/Vol] 29.0 mmol/L 21.0-32.0 [facility] T4 [Mass/Vol] 14.9 ug/dL 4.8-13.9 [facility] Urea nitrogen/Creatinine [Mass ratio] 10.4 mg/mg 10-20 [facility] No Panel InformationOrdered By: Darshana España on 08-14-2022 Estimated GFR (MDRD) Amer 111 mL/min >60 [facility] Comment on above: GFR Calc Estimated GFR (MDRD) Non-Af Amer 92 mL/min >60 [facility] Comment on above: Non- GFR Calc Free Triiodothyronine (T3) pg/dL 2.2 pg/mL 2.18-3.98 [facility] Thyroid Stimulating Hormone (TSH) 0.39 uIU/mL 0.358-3.74 [facility] Serum or plasma calcium christine urement (mass/volume)Ordered By: Darshana España on 08-14-2022 Calcium [Mass/Vol] 8.8 mg/dL 8.5-10.1 [facility] Serum or plasma cholesterol in HDL measurement (mass/volume)Ordered By: Darshana España on 08-14-2022 Cholesterol in HDL [Mass/Vol] 61 mg/dL >40 [facility] Comment on above: The drugs N-Acetylcy steine and Metamizole may falsely depress this assay. Reference Range HDL <40 mg/dL Low HDL Cholesterol HDL >or= 60 mg/dL High HDL Cholesterol Serum or plasma cholesterol in VLDL measurement (mass/volume)Ordered By: Darshana España on 08-14-2022 Cholesterol in VLDL [Mass/Vol] 19 mg/dL 5-40 [facility] Serum or plasma creatinine m easurement (mass/volume)Ordered By: Darshana España on 08-14-2022 Creatinine [Mass/Vol] 0.68 mg/dL 0.55-1.02 [facility] Comment on above: The validity of the calculated GFR & GFRAA in patients over 70 years has not been determined. Clinical correlation is essential. Serum or plasma low density lipoprotein (LDL) cholesterol measurement (mass/volume)Ordered By: Darshana España on 08-14-2022 Cholesterol in LDL [Mass/Vol] 73 mg/dL 0-130 [facility] Serum or plasma urea nitroge n measurement (mass/volume)Ordered By: Darshana España on 08-14-2022 Urea nitrogen [Mass/Vol] 7 mg/dL 7-18 [facility] Thin prep Papanicolaou smear with manual screeningOrdered By: Darshana España on 08-14-2022 Thin prep Papanicolaou smear with manual screening 4 5-15 [facility] Basophil percentageon 2021 Chloride [Moles/Vol] 105 mmol/L 98-107 [facility] Work Phone: Glucose [Mass/Vol] 81 mg/dL 74-106 [facility] Work Phone: Potassium [Moles/Vol] 4.7 mmol/L 3.5-5.1 [facility] Work Phone: Comment on above: Slight Hemolysis, Re sult may be falsely increased. Sodium [Moles/Vol] 137 mmol/L 136-145 [facility] Work Phone: Laboratory - Chemistry and C hemistry - challengeon 08-10-2021 CO2 [Moles/Vol] 25.0 mmol/L 21.0-32.0 [facility] Work Phone: Urea nitrogen/Creatinine [Mass ratio] 17.4 mg/mg 10-20 [facility] Work Phone: No Panel Informationon 08-10 Estimated GFR (MDRD) Amer 109 mL/min >60 [facility] Work Phone: Comment on above: GFR Calc Estimated GFR (MDRD) Non-Af Amer 90 mL/min >60 [facility] Work Phone: Comment on above: Non- GFR Calc Thyroid Stimulating Hormone (TSH) 1.71 uIU/mL 0.358-3.74 [facility] Work Phone: Serum or plasma calcium christine urement (mass/volume)on 08-10-2021 Calcium [Mass/Vol] 9.4 mg/dL 8.5-10.1 [facility] Work Phone: Serum or plasma creatinine m easurement (mass/volume)on 08-10-2021 Creatinine [Mass/Vol] 0.69 mg/dL 0.55-1.02 [facility] Work Phone: Comment on above: The validity of the calculated GFR & GFRAA in patients over 70 years has not been determined. Clinical correlation is essential. Serum or plasma urea nitroge n measurement (mass/volume)on 08-10-2021 Urea nitrogen [Mass/Vol] 12 mg/dL 7-18 [facility] Work Phone: Thin prep Papanicolaou smear with manual screeningon 08-10-2021 Thin prep Papanicolaou smear with manual screening 7 - [facility] Work Phone: BMP with eGFRon 03-26-2020 Age - Reported 64 years Normal [facility] Comment on above: Performed By: #### 2 [id number] #### [facility],[address] [place] [address] 33928 Anion gap [Moles/Vol] 14 mmol/L Normal 10 - 20 [facility] Comment on above: Performed By: #### 2 [id number] #### [facility],[address] [place] [address]52 Calcium [Mass/Vol] 9.0 mg/dL Normal 8.5 - 10.1 [facility] Comment on above: Performed By: #### 2 58354 #### [facility],[address] [place] [address]239 Chloride [Moles/Vol] 100 mmol/L Normal 98 - 107 [facility] Comment on above: Performed By: #### 2 14650 #### [facility],[address] [place] [address] 31140 CO2 [Moles/Vol] 25.7 mmol/L Normal 21.0 - 32.0 [facility] Comment on above: Performed By: #### 2 19558 #### [facility],[address] [place] [address] 49149 Creatinine [Mass/Vol] 0.9 mg/dL Normal 0.5 - 1.0 [facility] Comment on above: Performed By: #### 2 33181 #### [facility],[address] [place] [address] 69744 GFR/1.73 sq M predicted among non-blacks MDRD (S/P/Bld) [Vol rate/Area] mL/min/{1.73_m2} Normal 60 - 999 [facility] Comment on above: Result Comment: ACCO RDING TO THE NATIONAL KIDNEY DISEASE EDUCATION PROGRAM(NKDE), A NORMAL eGFR IS A VALUE GREATER THAN OR EQUAL TO 60 ML/MIN/1.73 SQ METERS. CHRONIC KIDNEY DISEASE: <60mL/MIN/1.73 SQ METERS KIDNEY FAILURE: <15mL/MIN/1.73 SQ METERS THIS TEST SHOULD ONLY BE USED FOR PATIENTS 18 YEARS OF AGE AND OLDER. Performed By: #### 2 01054 #### [address] [address] GFR/1.73 sq M predicted among non-blacks MDRD (S/P/Bld) [Vol rate/Area] Normal [facility] Comment on above: Result Comment: BASI C METABOLIC PANEL Performed By: #### 2 13529 #### [address] [address] Glucose [Mass/Vol] 95 mg/dL Normal 74 - 106 [facility] Comment on above: Performed By: #### 2 27323 #### [address] [address] Potassium [Moles/Vol] 4.3 mmol/L Normal 3.5 - 5.1 [facility] Comment on above: Performed By: #### 2 11432 #### [address] [address] Sodium [Moles/Vol] 135 mmol/L Low 136 - 145 [facility] Comment on above: Performed By: #### 2 29988 #### [address] [address] Urea nitrogen [Mass/Vol] 10 mg/dL Normal 7 - 18 [facility] Comment on above: Performed By: #### 2 73335 #### [address] [address] CBC + DIFFon 03-26-2020 Basophils (Bld) [#/Vol] 0.00 x10EE3/UL Normal 0.00 - 0 .10 [facility] Comment on above: Performed By: #### 2 38103 #### [facility],[address] [place] [address] 24977 Basophils/100 WBC (Bld) 0.7 % Normal 0.0 - 2.0 [facility] Comment on above: Performed By: #### 2 77811 #### [facility],[address] [place] [address] 75893 CBC + DIFF Normal [facility] Comment on above: Result Comment: CBC- COMPLETE BLOOD COUNT Performed By: #### 2 27581 #### [facility],[address] [place] [address]6598 Eosinophils (Bld) [#/Vol] 0.10 x10EE3/UL Normal 0.00 - 0.50 [facility] Comment on above: Performed By: #### 2 86230 #### [facility],[address] [place] [address] 50473 Eosinophils/100 WBC (Bld) 2.2 % Normal 0.0 - 7.0 [facility] Comment on above: Performed By: #### 2 94136 #### [facility],[address] [place] [address] 23763 Erythrocyte distribution width (RBC) [Ratio] 13.1 % Normal 12.0 - 15.6 [facility] Comment on above: Performed By: #### 2 74737 #### [facility],[address] [place] [address]708 Hematocrit (Bld) [Volume fraction] 40.9 % Normal 34.0 - 46.0 [facility] Comment on above: Performed By: #### 2 85747 #### [facility],[address] [place] [address]316 Hemoglobin (Bld) [Mass/Vol] 13.9 g/dL Normal 12.0 - 16.0 [facility] Comment on above: Performed By: #### 2 09861 #### [facility],[address] [place] [address] 83677 Lymphocytes (Bld) [#/Vol] 2.50 x10EE3/UL Normal 0.80 - 2.80 [facility] Comment on above: Performed By: #### 2 49576 #### [facility],[address] [place] [address] 05385 Lymphocytes/100 WBC (Bld) 37.4 % Normal 20.0 - 45. 0 [facility] Comment on above: Performed By: #### 2 02468 #### [facility],[address] [place], [place] [id number] MANUAL DIFF N/A Normal [facility] Comment on above: Performed By: #### 2 79723 #### [facility],[address] [place] [address] 26143 MCH (RBC) [Entitic mass] 33 pg Normal 27 - 33 [facility] Comment on above: Performed By: #### 2 83554 #### [facility],[address] [place] [address] 48986 MCHC (RBC) [Mass/Vol] 34 X10 3 Normal 32 - 36 [facility] Comment on above: Performed By: #### 2 58254 #### [facility],[address] [place] [address] 54966 MCV (RBC) [Entitic vol] 97 fL Normal 80 - 99 [facility] Comment on above: Performed By: #### 2 72215 #### [facility],[address] [place] [address]78 Monocytes (Bld) [#/Vol] 0.60 x10EE3/UL Normal 0.20 - 1 .00 [facility] Comment on above: Performed By: #### 2 66445 #### [facility],[address] [place] [address] 47717 MONOS % 8.5 % Normal 0.0 - 10.0 [facility] Comment on above: Performed By: #### 2 27752 #### [facility],[address] [place] [address] 83133 Morphology David (Bld) [Interp] N/A Normal [facility] Comment on above: Performed By: #### 2 74062 #### [facility],[address] [place] [address] 95144 Neutrophils (Bld) [#/Vol] 3.40 x10EE3/UL Normal 1.50 - 7.10 [facility] Comment on above: Performed By: #### 2 85612 #### [address] [address] Neutrophils/100 WBC (Bld) 51.2 % Normal 46.0 - 76. 0 [facility] Comment on above: Performed By: #### 2 36157 #### [facility],[address] [place] [address] 17744 Platelet mean volume (Bld) [Entitic vol] 8.7 fL Normal 6.6 - 10.5 [facility] Comment on above: Result Comment: AUTO MATED DIFFERENTIAL Performed By: #### 2 88228 #### [address] [address] Platelets (Bld) [#/Vol] 274 x10EE3/UL Normal 150 - 450 [facility] Comment on above: Performed By: #### 2 84084 #### [facility],[address] [place] [address] 80907 RBC (Bld) [#/Vol] 4.21 x 10EE6/UL Normal 4.10 - 5.30 [facility] Comment on above: Performed By: #### 2 61619 #### [facility],[address] [place] [address] 17477 WBC (Bld) [#/Vol] 6.7 x 10EE3/UL Normal 4.5 - 10.8 [facility] Comment on above: Performed By: #### 2 21000 #### [facility],[address] [place] [address] 33143 CHEST 2 VIEWSon 03-26-2020 CHEST [address] [address] Patient: CLOVER BOGGS Phone#: : [phone] Age: 64 Gender: F Pt. Type: Out Account: [id number] Location: Ordering: CHERELLE POTTS Exam Date: 03/26/2020/16:54 Family Phys: Charge Code: [id number] Physician: [place] Order #: [id number] DLP Dose#: PROCEDURE: X-RAY CHEST 2 VIEWS COMPARISON: None. INDICATIONS: Pre operative. FINDINGS: LUNGS: Normal. No significant pulmonary parenchymal abnormalities. VASCULATURE: Normal. Unremarkable pulmonary vasculature. CARDIAC: Normal. No cardiac silhouette abnormality or cardiomegaly. MEDIASTINUM: Normal. No visible mass or adenopathy. PLEURA: Normal. No effusion or pleural thickening. BONES: There is minimal leftward curvature of the upper thoracic spine. OTHER: Negative. CONCLUSION: No acute disease. Dictated by: Inge Dorman MD on 03/26/2020 at 17:23 Approved by: Inge Dorman MD on 03/26/2020 at 17:25 Normal [facility] CORONAVIRUS PCR - [facility] 03-26-2020 COVID-19 Negative Normal NORMAL: NEGATIVE [facility] Comment on above: Result Comment: RESU LTS FAXED TO INFECTION CONTROL. SARS-CoV-2 THIS TEST IS BEING USED UNDER THE FDA EUA PROCEDURE. THIS ASSAY HAS BEEN VALIDATED IN THE [facility] FOR USE WITH NASOPHARYNGEAL SPECIMENS IN [facility]. INTERPRETIVE DATA LABORATORY TEST RESULTS SHOULD ALWAYS BE CONSIDERED IN THE CONTEXT OF CLINICAL OBSERVATIONS AND EPIDEMIOLOGICAL DATA IN MAKING FINAL DIAGNOSIS AND PATIENT MANAGEMENT DECISIONS. PATIENT MANAGEMENT SHOULD FOLLOW CURRENT CDC GUIDELINES. A POSITIVE TEST RESULT FOR COVID-19 INDICATES THAT RNA FROM SARS-CoV-2 WAS DETECTED, AND THE PATIENT IS INFECTED WITH THE VIRUS AND PRESUMED TO BE CONTAGIOUS. A NEGATIVE TEST RESULT FOR THIS TEST MEANS THAT SARS-CoV-2 RNA WAS NOT PRESENT IN THE SPECIMEN ABOVE THE LIMIT OF DETECTION. HOWEVER, A NEGATVIE RESULT DOES NOT RULE OUT COVID-19 AND SHOULD NOT BE USED THE SOLE BASIS FOR TREATMENT OR PATIENT MANAGEMENT DECISIONS. A NEGATIVE RESULT DOES NOT EXCLUDE THE POSSIBILITY OF COVID-19. WHEN DIAGNOSTIC TESTING IS NEGATIVE, THE POSSIBLILTY OF A FALSE NEGATIVE RESULT SHOULD BE CONSIDERED IN THE CONTEXT OF A PATIENT'S RECENT EXPOSURES AND THE PRESENCE OF CLINICAL SIGNS AND SYMPTOMS CONSISTENT WITH COVID-19. THE POSSIBILITY OF A FALSE NEGATIVE RESULT SHOULD ESPECIALLY BE CONSIDERED IF THE PATIENT'S RECENT EXPOSURES OR CLINICAL PRESENTATION INDICATE THAT COVID-19 IS LIKELY, AND DIAGNOSTIC TESTS FOR OTHER CAUSES OF ILLNESS (e.g., OTHER RESPIRATORY ILLNESS) ARE NEGATIVE. IF COVID-19 IS STILL SUSPECTED BASED ON EXPOSURE HISTORY TOGETHER WITH OTHER CLINICAL FINDINGS, RE-TESTED SHOULD BE CONSIDERED BY HEALTHCARE PROVIDERS IN CONSULTATION WITH PUBLIC HEALTH AUTHORITIES. Performed By: #### [id number] #### [facility],[address] [place] [address] Vital Signs Date Time Vital Sign Value Performing Clinician Donald chavez 08-25-2021 14:17-0400 Body height 160.02 cm [facility] Work Phone: Encounters Encounter Date Encounter Type Care Provider Facility Start: 12-12-2024 ambulatory Pollo logany:[facility] Start: 08-29-2024 End: 08-29-[address] Chepe Talamantes MD Work Phone: [facility] Work Phone: Start: 08-29-2024 End: 08-29-[address] Chepe Talamantes MD -Laboratory, [place] Work Phone: Start: 08-29-2024 End: 08-29-2024 ambulatory Chepe Talamantes Facility:[facility] Start: 09-03-2023 End: 09-03-2023 ambulatory [facility] Work Phone: Start: 09-03-2023 End: 09-03-2023 Patient encounter procedure [facility]-Outpatient Breast Imaging Work Phone: Start: 08-20-2023 End: 08-20-2023 ambulatory [facility] Work Phone: Start: 08-20-2023 End: 08-20-2023 Patient encounter procedure [facility] Start: 09-11-2022 End: 09-11-2022 ambulatory [facility] Work Phone: Start: 09-11-2022 End: 09-11-2022 Patient encounter procedure [facility] Start: 08-30-2022 End: 08-30-2022 Patient encounter procedure [facility]Out[facility] Breast [facility] Start: 08-14-2022 End: 08-14-2022 ambulatory [facility] Work Phone: Start: 08-14-2022 End: 08-14-2022 Patient encounter procedure [facility] Start: 08-25-2021 End: 08-25-2021 Patient encounter procedure [facility]Outpatient Bone Densitometry Start: 08-10-2021 End: 08-10-2021 Patient encounter procedure [facility] Start: 03-29-2020 End: 03-29-2020 Patient encounter procedure CHERELLE POTTS [facility] Start: 03-26-2020 End: 03-26-2020 Patient encounter procedure [facility] Bala DAVIDA [facility] Start: 03-26-2020 End: 03-26-2020 [facility] Procedures Date Procedure Procedure Detail Performing Clinician Start: 08-29-2024 X-ray of lumbar spin e, two or three views Dr. Chepe Talamantes MD Work Phone: Start: 09-03-2023 Screening mammography Start: 08-30-2022 Screening mammography Start: 08-25-2021 Dual energy X-ray absorptiometry Start: 08-25-2021 Screening mammograph y of bilateral breasts Payers Date Payer Category Payer Self-pay [id number] 2024 Medicare [id number] 1955 Unknown [id number] 1955 Unknown [id number] Unknown [id number] Unknown [id number] Unknown [id number] Unknown [id number] Unknown [id number] Social History Date Type Detail Facility Start: 03-29-2020 Tobacco smoking stat [facility] Unknown if ever smoked [facility] Start: 1955 Sex Assigned At Female [facility] Start: 03-29-2020 Tobacco smoking stat [facility] Never smoked tobacco (finding) [facility] Start: 09-01-2024 Sex Female (finding) [facility] Medical Equipment Procedure Code Equipment Code Equipment Origin al Text Equipment Identifier Dates ORIF, fracture, wrist 2.3 X 16 LOCK CORTICAL SCREW FDA Start: 03-29-2020 ORIF, fracture, wrist NARROW PLATE LEFT FDA Start: 03-29-2020 ORIF, fracture, wrist 2.3MM X 18MM LOCK SALINA SCREW FDA Start: 03-29-2020 ORIF, fracture, wrist 2.3MM X 18MM LOCK SALINA SCREW FDA Start: 03-29-2020 ORIF, fracture, wrist 2.3MM X 18MM LOCK SALINA SCREW FDA Start: 03-29-2020 ORIF, fracture, wrist 3.5 X 10 NON LOCK HXLOBE SCREW FDA Start: 03-29-2020 ORIF, fracture, wrist 3.5 X 12 VIDHYA LOCK HEXLOBE SCRW FDA Start: 03-29-2020 ORIF, fracture, wrist 3.5 X 12 VIDHYA LOCK HEXLOBE SCRW FDA Start: 03-29-2020 ORIF, fracture, wrist 20MM L 2.3 FDA Start: 03-29-2020 ORIF, fracture, wrist 20MM L 2.3 FDA Start: 03-29-2020 ORIF, fracture, wrist 2.3 X 16 LOCK CORTICAL SCREW FDA Start: 03-29-2020 ORIF, fracture, wrist NARROW PLATE LEFT FDA Start: 03-29-2020 ORIF, fracture, wrist 2.3MM X 18MM LOCK SALINA SCREW FDA Start: 03-29-2020 ORIF, fracture, wrist 2.3MM X 18MM LOCK SALINA SCREW FDA Start: 03-29-2020 ORIF, fracture, wrist 2.3MM X 18MM LOCK SALINA SCREW FDA Start: 03-29-2020 ORIF, fracture, wrist 3.5 X 10 NON LOCK HXLOBE SCREW FDA Start: 03-29-2020 ORIF, fracture, wrist 3.5 X 12 VIDHYA LOCK HEXLOBE SCRW FDA Start: 03-29-2020 ORIF, fracture, wrist 3.5 X 12 VIDHYA LOCK HEXLOBE SCRW FDA Start: 03-29-2020 ORIF, fracture, wrist 20MM L 2.3 FDA Start: 03-29-2020 ORIF, fracture, wrist 20MM L 2.3 FDA Start: 03-29-2020 ORIF, fracture, wrist 2.3 X 16 LOCK CORTICAL SCREW FDA Start: 03-29-2020 ORIF, fracture, wrist NARROW PLATE LEFT FDA Start: 03-29-2020 ORIF, fracture, wrist 2.3MM X 18MM LOCK SALINA SCREW FDA Start: 03-29-2020 ORIF, fracture, wrist 2.3MM X 18MM LOCK SALINA SCREW FDA Start: 03-29-2020 ORIF, fracture, wrist 2.3MM X 18MM LOCK SALINA SCREW FDA Start: 03-29-2020 ORIF, fracture, wrist 20MM L 2.3 FDA Start: 03-29-2020 ORIF, fracture, wrist 20MM L 2.3 FDA Start: 03-29-2020 ORIF, fracture, wrist 3.5 X 10 NON LOCK HXLOBE SCREW FDA Start: 03-29-2020 ORIF, fracture, wrist 3.5 X 12 VIDHYA LOCK HEXLOBE SCRW FDA Start: 03-29-2020 ORIF, fracture, wrist 3.5 X 12 VIDHYA LOCK HEXLOBE SCRW FDA Start: 03-29-2020 ORIF, fracture, wrist 2.3 X 16 LOCK CORTICAL SCREW FDA Start: 03-29-2020 ORIF, fracture, wrist NARROW PLATE LEFT FDA Start: 03-29-2020 ORIF, fracture, wrist 2.3MM X 18MM LOCK SALINA SCREW FDA Start: 03-29-2020 ORIF, fracture, wrist 2.3MM X 18MM LOCK SALINA SCREW FDA Start: 03-29-2020 ORIF, fracture, wrist 2.3MM X 18MM LOCK SALINA SCREW FDA Start: 03-29-2020 ORIF, fracture, wrist 20MM L 2.3 FDA Start: 03-29-2020 ORIF, fracture, wrist 20MM L 2.3 FDA Start: 03-29-2020 ORIF, fracture, wrist 3.5 X 10 NON LOCK HXLOBE SCREW FDA Start: 03-29-2020 ORIF, fracture, wrist 3.5 X 12 VIDHYA LOCK HEXLOBE SCRW FDA Start: 03-29-2020 ORIF, fracture, wrist 3.5 X 12 VIDHYA LOCK HEXLOBE SCRW FDA Start: 03-29-2020 ORIF, fracture, wrist 2.3 X 16 LOCK CORTICAL SCREW FDA Start: 03-29-2020 ORIF, fracture, wrist NARROW PLATE LEFT FDA Start: 03-29-2020 ORIF, fracture, wrist 2.3MM X 18MM LOCK SALINA SCREW FDA Start: 03-29-2020 ORIF, fracture, wrist 2.3MM X 18MM LOCK SALINA SCREW FDA Start: 03-29-2020 ORIF, fracture, wrist 2.3MM X 18MM LOCK SALINA SCREW FDA Start: 03-29-2020 ORIF, fracture, wrist 20MM L 2.3 FDA Start: 03-29-2020 ORIF, fracture, wrist 20MM L 2.3 FDA Start: 03-29-2020 ORIF, fracture, wrist 3.5 X 10 NON LOCK HXLOBE SCREW FDA Start: 03-29-2020 ORIF, fracture, wrist 3.5 X 12 VIDHYA LOCK HEXLOBE SCRW FDA Start: 03-29-2020 ORIF, fracture, wrist 3.5 X 12 VIDHYA LOCK HEXLOBE SCRW FDA Start: 03-29-2020 ORIF, fracture, wrist 2.3 X 16 LOCK CORTICAL SCREW FDA Start: 03-29-2020 ORIF, fracture, wrist NARROW PLATE LEFT FDA Start: 03-29-2020 ORIF, fracture, wrist 2.3MM X 18MM LOCK SALINA SCREW FDA Start: 03-29-2020 ORIF, fracture, wrist 2.3MM X 18MM LOCK SALINA SCREW FDA Start: 03-29-2020 ORIF, fracture, wrist 2.3MM X 18MM LOCK SALINA SCREW FDA Start: 03-29-2020 ORIF, fracture, wrist 20MM L 2.3 FDA Start: 03-29-2020 ORIF, fracture, wrist 20MM L 2.3 FDA Start: 03-29-2020 ORIF, fracture, wrist 3.5 X 10 NON LOCK HXLOBE SCREW FDA Start: 03-29-2020 ORIF, fracture, wrist 3.5 X 12 VIDHYA LOCK HEXLOBE SCRW FDA Start: 03-29-2020 ORIF, fracture, wrist 3.5 X 12 VIDHYA LOCK HEXLOBE SCRW FDA Start: 03-29-2020 ORIF, fracture, wrist 2.3 X 16 LOCK CORTICAL SCREW FDA Start: 03-29-2020 ORIF, fracture, wrist NARROW PLATE LEFT FDA Start: 03-29-2020 ORIF, fracture, wrist 2.3MM X 18MM LOCK SALINA SCREW FDA Start: 03-29-2020 ORIF, fracture, wrist 2.3MM X 18MM LOCK SALINA SCREW FDA Start: 03-29-2020 ORIF, fracture, wrist 2.3MM X 18MM LOCK SALINA SCREW FDA Start: 03-29-2020 ORIF, fracture, wrist 20MM L 2.3 FDA Start: 03-29-2020 ORIF, fracture, wrist 20MM L 2.3 FDA Start: 03-29-2020 ORIF, fracture, wrist 3.5 X 10 NON LOCK HXLOBE SCREW FDA Start: 03-29-2020 ORIF, fracture, wrist 3.5 X 12 VIDHYA LOCK HEXLOBE SCRW FDA Start: 03-29-2020 ORIF, fracture, wrist 3.5 X 12 VIDHYA LOCK HEXLOBE SCRW FDA Start: 03-29-2020 Radiology Diagnostic study note 08-29-2024 Note Date & Type Note Facility 08-29-2024 Radiology Diagnostic study note [facility] Imaging Services [address] [place] [address] Lumbar Spine 2 or 3 Views MR#: [id number] Acct: [id number] Name: RAFASCHUYLERCLOVER Lorelei Rep #: [id number] : 1955 F 69 From: Marley Lazaro MD PCP: Dr. Chepe Talamantes MD Status: REG CLI Study:Lumbar Spine 2 or 3 Views Date of Exam: 08/29/24 Exam# [id number] Ordering Dr: Dain Talamantes MD EXAM: XR Lumbosacral Spine, 2 or 3 Views CLINICAL INDICATION: LOW BACK PAIN TECHNIQUE: Frontal and lateral views of the lumbar spine and sacrum. COMPARISON: No relevant prior studies available. FINDINGS: VERTEBRAE: Moderate facet arthropathy of L2-S1. No acute fracture. Normal alignment. SACRUM/COCCYX: Unremarkable as visualized. No acute fracture. DISC SPACES: No acute findings. No significant narrowing. SOFT TISSUES: Unremarkable. VASCULATURE: Scattered calcified atherosclerotic disease of aorta. RAD/Lumbar Spine 2 or 3 Views IMPRESSION: Degenerative changes as above. Reading Location: [facility] CC: Dr. Chepe Talamantes MD ~ Quality Improvement Coordinator: Signed [facility] Evaluation note Note Date & Type Note Facility Evaluation note No assessment information availa ble [facility] Work Phone: Reason for referral (narrative) Note Date & Type Note Facility Reason for referral (narrative) No reason for referral information available [facility] Work Phone: Summary Purpose Family History No Family History Records FoundNo Family History Records FoundNo Family History Records Found Advance Directives No Advanced Directives Records Found Advance Directive Response Recorded Date/ Time Advance Directives No March 29, 2020 3:04pm Living Will No March 29 3:04pm Power of Insemination Worker No March 29, 2020 3:04pm Advance Directive Response Recorded Date/ Time Advance Directives No March 29, 2020 3:04pm Chief Complaint and Reason for Visit Chief Complaint SCREENING/OSTEO Chief Complaint SCREENING Chief Complaint Admit Date EORDERS August 29, 2024 8:4 9am Additional Source Comments INFORMATION SOURCE (unrecogn ized section and content) DATE CREATED AUTHOR 03/26/2020 [facility] DATE CREATED AUTHOR AUTHOR'S ORGANIZ ATION 04/12/2020 [facility] DATE CREATED AUTHOR AUTHOR'S ORGANIZ ATION 12/11/2024 [facility] Goals (unrecognized section and content) Goals may be documented in a n alternate sectionGoals may be documented in an alternate sectionGoals may be documented in an alternate sectionGoals may be documented in an alternate sectionGoals may be documented in an alternate sectionGoals may be documented in an alternate sectionGoals may be documented in an alternate section Care Teams (unrecognized sec tion and content) Team Status: Active Member Role Status Dates Dr. Chepe Talamantes MD Family Provider Active Dr. Chepe Talamantes MD Primary Care Provider Active Team Status: Inactive Member Role Status Dates Dr. Chepe Talamantes MD Primary Care Provider Active NIMA Kemp Attending Provider Active Team Status: Inactive Member Role Status Dates Dr. Chepe Talamantes MD Primary Care Provider Active NIMA Kemp Attending Provider, Referring Pr ovider Active Team Status: Inactive Member Role Status Dates Dr. Chepe Talamantes MD Primary Care Provider Active Dr. Gus Edge MD Attending Provider, Referring Pro vider Active Team Status: Inactive Member Role Status Dates Dr. Chepe Talamantes MD Primary Care Provider, Attending P rovider Active Team Status: Inactive Member Role Status Dates Dr. Chepe Talamantes MD Primary Care Provider Active NIMA Garcia Attending Provider, Referr ing Provider Active Team Status: Inactive Member Role Status Dates Dr. Chepe Talamantes MD Primary Care Provider Active Start: August 29, 2024 End: August 29, 2024 Dr. Chepe Talamantes MD Attending Provider Active St art: August 29, 2024 End: August 29, 2024 Dr. Chepe Talamantes MD Referring Provider Active St art: August 29, 2024 End: August 29, 2024 FOR RECORDS PERTAINING TO PATIENTS WHO ARE OR HAVE BEEN ENROLLED IN A CHEMICAL DEPENDENCY/SUBSTANCEABUSE PROGRAM, SOME INFORMATION MAY BE OMITTED. This clinical summary was aggregated from multiple sources. Caution should be exercised in using it in the provision of clinical care. This summary normalizes information from multiple sources, and as a consequence, information in this document may materially change the coding, format and clinical context of patient data. In addition, data may be omitted in some cases. CLINICAL DECISIONS SHOULD BE BASED ON THE PRIMARY CLINICAL RECORDS. [facility] [employer] [facility]. provides no warranty or guarantee of the accuracy or completeness of information in this document.
[2024-12-12] MEDS: Lactated Ringers 1,000 ML 15 ML IV (07:59)
--- NOTE | 2024-12-12 08:10 | PCM.PRE.AN2 ---
ASA Classification* ASA Classification ASA Classification: 2 Assessment & Plan Anesthesia* Anesthesia Assessment Anesthesia Assessment: Discussed sedation and/or anesthesia options, risks, benefits, and alternatives with patient/parents/legal guardian/POA. Questions invited. The patient/parents/legal guardian/POA seems to understand and agrees to proceed with anesthesia plan. Reviewed the physical assessment, medical history, allergy history and patient home medications list prior to surgery/procedure/anesthetic and documented any changes. Performed airway and anesthesia risk assessments. Anesthesia Type Anesthesia Type: MAC History Source History Obtained from:: Patient and Chart Anesthesia Focused Assessment* Temperature: 98.2 F Pulse Rate: 92 Blood Pressure: 141/77 Respiratory Rate: 16 Pulse Ox: 96 Oxygen Delivery Method: Room Air Airway Assessment Mouth opens: >3 cm Mallampati Score: II Teeth Condition: Caps/Crowns (All top teeth capped. ) and Missing (one missing lower left molar. ) Neck Range of motion (ROM): Full ROM Labs Anesthesia Preop lab: CBC WBC 4.8 K/mm3 (4.4-11.0) 08/29/24 08:53 08/29/24 RBC 4.45 M/mm3 (4.2-5.4) 08/29/24 08:53 08/29/24 Hgb 14.8 g/dL (12.0-15.0) 08/29/24 08:53 08/29/24 Hct 44.9 % (37-47) 08/29/24 08:53 08/29/24 Plt Count 249 K/mm3 (150-450) 08/29/24 08:53 08/29/24 CHEMISTRY Potassium 4.2 mmol/L (3.3-5.1) 08/29/24 08:53 08/29/24 Sodium 143 mmol/L (133-145) 08/29/24 08:53 08/29/24 BUN 10 mg/dL (4-19) 08/29/24 08:53 08/29/24 Creatinine 0.73 mg/dL (0.70-1.20) 08/29/24 08:53 08/29/24 Glucose 91 mg/dL (70-99) 08/29/24 08:53 08/29/24 TSH 1.20 uIU/mL (0.358-3.74) 08/20/23 09:27 08/20/23 COAG Pre-Assessment Diagnosis/Proposed Procedure Planned Operative Procedure(s): COLONOSCOPY Anesthesia History Anesthesia History - transportation lead: Anesthesia History - transportation lead Hx Hospitalization No 12/09/24 13:36 Any Problems With Anesthesia No 12/09/24 13:36 Cholinesterase deficiency No 12/09/24 13:36 You/Your Family Experience No 12/09/24 13:36 fever (hyperthermia) with Relationship Recent Exposure to Contagious No 12/12/24 07:49 Disease Does patient have nerve No 12/09/24 13:36 stimulator Patient instructed to have device shut off --Does patient have Pacemaker No 12/12/24 07:49 or ICD? When Was Last Pacemaker Check QUESTION #4 FULL TEXT: You/Your Family Experience fever (hyperthermia) with Anesthesia Any additional information?: No Last Oral Intake Last Oral intake: Last Oral Intake NPO since 23:30 12/12/24 07:49 Meds taken in AM with sips of No 12/12/24 07:49 water? Meds patient instructed to take am of surgery Any additional information?: No PONV PONV - transportation lead: PONV - transportation lead Female Yes 12/09/24 13:36 HX of Motion Sickness No 12/09/24 13:36 HX of N/V After Surgery No 12/09/24 13:36 Non-Smoker Yes 12/09/24 13:36 Duration of Surgery greater No 12/09/24 13:36 than 60 minutes Number of Risk Factors 2 12/09/24 13:36 PONV Score Moderate Risk 12/09/24 13:36 Any additional information?: No Height & Weight Height & Weight: Anesthesia: Height & Weight Height 5 ft 3 in 12/12/24 07:49 Weight: 72 kg 12/12/24 07:49 Body Mass Index (BMI) 28.0 12/12/24 07:49 Respiratory Assessment Respiratory Assessment - transportation lead: Respiratory Tract Infection Hx - transportation lead Hx Respiratory Tract Infection No 12/09/24 13:36 Any additional information?: No STOP Sleep Apnea STOP Sleep Apnea - transportation lead: STOP Sleep Apnea - transportation lead Hx Hypertension No 12/09/24 13:36 Hx Sleep Apnea No 12/09/24 13:36 CPAP BIPAP Do you snore loudly (louder No 12/09/24 13:36 than talking or can be heard Do you often feel tired/ No 12/09/24 13:36 fatigued/ sleepy during daytime? Has anyone observed you stop No 12/09/24 13:36 breathing during sleep? STOP Results Negative 12/09/24 13:36 QUESTION #5 FULL TEXT : Do you snore loudly (louder than talking or can be heard through closed doors)? 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 Specify any problems Hx of Preganancy in last 3 No 12/09/24 13:36 Months Nurse Filling Out Transfusion [email or web address] 12/09/24 13:36 & Questions: Date: 12/09/24 12/09/24 13:36 Time: 13:38 12/09/24 13:36 Patient unable to answer at this time (ie. confused, unrespo Any additional information?: No /Reproduction History /Reproductive History - transportation lead: /Reproductive Hx- transportation lead Hx Now Gestational Age (in weeks): EDC: Hx Hx Para Hx Section SAB Any additional information?: No Active Medications Active Medications: Current Medications Generic Name Dose Route Start Last Admin Trade Name Freq PRN Reason Stop Dose Admin Lactated Ringer's 1,000 mls @ 15 mls/hr 12/12/24 07:45 12/12/24 07:59 IV 15 mls/hr .Q48H ZENOBIA Administration PFSH Medical History Wears glasses Thyroid disease Back pain Leg cramps Non-smoker Heartburn Home Medications Medication Instructions Recorded Last Taken Type celecoxib 200 mg capsule 200 mg PO .QOD 03/25/20 Unknown History levothyroxine 100 mcg tablet 100 mcg PO DAILY 03/25/20 Unknown History hydroxychloroquine 200 mg tablet 200 mg PO DAILY 12/09/24 Unknown History Allergy/AdvReac Type Severity Reaction Status Date / Time No Known Allergies Allergy Verified 12/12/24 07:47 Surgical History H/O: hysterectomy Hx of appendectomy H/O wrist surgery Social History Smoking Status: Never smoker Review of Systems (Anesthesia) ROS Narrative System reviewed and no additional complaints, except as documented.
--- NOTE | 2024-12-12 08:27 | HP.PCM_ITS ---
HPI - General HPI Narrative CLOVER BOGGS, is a 69 F who presents for screening colonoscopy. Patient's last colonoscopy was 10 years ago was normal. She denies abdominal pain or blood in the stool. She has no family history of colon cancer. [facility] Medical History Wears glasses Thyroid disease Back pain Leg cramps Non-smoker Heartburn Home Medications Medication Instructions Recorded Last Taken Type celecoxib 200 mg capsule 200 mg PO .QOD 03/25/20 Unkn own History levothyroxine 100 mcg tablet 100 mcg PO DAILY 03/25/20 Unknown History hydroxychloroquine 200 mg tablet 200 mg PO DAILY 12/09 Unknown History Allergy/AdvReac Type Severity Reaction Status Date / Time No Known Allergies Allergy Verified 12/12/24 07:47 Surgical History H/O: hysterectomy Hx of appendectomy H/O wrist surgery Social History Smoking Status: Never smoker Past Medical/Surgical History Planned Operation Planned Operative Procedure(s): COLONOSCOPY Previous Hospitalizations/Surgeries HX Hospitalizations: No HX of Surgeries: HYSTERECTOMY APPENDECTOMY Any Problems With Anesthesia: No You/Your Family Experience Fever (Hyperthermia) With Anes: No Cholinesterase deficiency: No Cardiovascular Hx Chest Pain within Last 2 months: No Hx of Irregular Heartbeat and/or Afib: No Hx Heart Attack: No Hx Congestive Heart Failure: No Hx Rheumatic Fever: No Hx Hypertension: No Hx Internal Defibrillator: No Hx Pacemaker: No Hx Cardiac Catheterization: No Hx Cardiac Surgery/Stents/Etc.: No Hx Stress Test: No Hx Pain in Legs when Walking/Leg Cramps: No Respiratory Chronic Cough: No HX of Shortness of Breath: No Hoarseness: No Hx Chronic Obstructive Pulmonary Disease (COPD): No Hx Asthma: No Hx Emphysema: No Hx Sleep Apnea: No Hx Respiratory Tract Infection/Cold (presently): No Do You Snore Loudly (louder than talking or can be heard): No Do You Often Feel Tired/ Fatigued/ Sleepy Dring Daytime?: No Has Anyone Observed You Stop Breathing During Sleep?: No Result (for STOP score): Negative Hx Smoking: No Smoking Status: Never smoker Gastrointestinal Hx Gastrointestinal Disorders: No Hx Gastrointestinal Bleed: No Hx Ulcer: No Hx Hiatal Hernia: No Difficulty Chewing/Swallowing: No Special diet followed at home: No Hx Unplanned Weight Loss of 20#: No HX Unplanned Weight Gain of 20#: No Neurological Hx Seizures: No HX Syncope/Blackout Spells/Unconsciousness: No Hx Transient Ischemic Attacks (TIA): No Hx Multiple Sclerosis: No Hx Parkinson's Disease: No Hx Head/Neck Injury: No Hx Headaches: No Hx Back Injury/Pain: No Recent Onset of Speech Difficulty: No Restless Legs: No Does patient have nerve stimulator: No Blood Disorder Hx Leukemia: No Bleeding Tendencies: No Hx Deep Vein Thrombosis: No Hx High Cholesterol: No Blood Transmitted Disease: No Hx Hepatitis: No Hx Cirrhosis: No Hx Anemia: No Hx Blood Disorders: No Genitourinary Hx Renal Disease: No Musculoskeletal Hx Arthritis: Yes (ON MEDICATION) Hx Rheumatoid Arthritis: No Hx Gout: No Recent Onset of an Orthopedic Problem: No Endocrine Hx Diabetes: No Thyroid Disease: Yes (MEDICATION) Hx Steroid Therapy: No Psycho/Social Hx Substance Use: No Hx Alcohol Use: Yes (SOCIAL) Hx Anxiety: No Hx Depression: No Mental Illness: No Hx Dementia: No Miscellaneous Hx Cancer: No Recent Exposure to Contagious Disease: No Hx of C-Diff: No Any Loose Teeth: No Allergies No Known Allergies Allergy (Verified 12/12/24 07:47) Discharge After D/C, Where Do you Plan to Go: Return Home From the [facility] History Number of Risk Factors: 3 Vital Signs Vital Signs Vital Signs: 12/12/24 07:49 12/12/24 07:49 12/12/24 08:15 Temperature 98.2 F 98.2 F Temperature Source Temporal Pulse Rate 92 92 Respiratory Rate 16 16 Respiratory Pattern Normal Blood Pressure 141/77 H 141/77 H Blood Pressure Mean 98 Blood Pressure Source Monitor Blood Pressure Position Semi-Fowlers Blood Pressure Location Right Arm Pulse Ox 96 96 Oxygen Delivery Method Room Air Room Air Weight Weight: 158 lb 11.725 oz Body Mass Index (BMI) 28.0 Physical Exam Const alert and oriented x3 HEENT normocephalic Eyes PERRL Resp normal respiratory effort and normal air movement Cardio regular rate and regular rhythm GI soft to palpation, non-tender and non-distended Extremity normal to inspection Assessment & Plan Assessment/Plan (1) Screen for colon cancer: PLAN: I explained endoscopy in detail to the patient. I explained the risks including but not limited to stroke or heart attack with anesthesia, perforation of the GI tract, bleeding, infection. I explained that any of these could necessitate further emergency surgery. The patient understands and all questions were answered sufficiently. The patient wishes to proceed with procedure. Pollo Gibbons MD Pager: [facility] [address] [place] [address] [address] [place] [address] Office: Surgery Risks - Colonoscopy Risks Include but are not Limited To: Risks include but are not limited to: Bleeding, perforation requiring further surgery, inability to complete colonoscopy requiring barium enema.
--- NOTE | 2024-12-12 09:06 | OP.CCLET_ITS ---
12/12/2024 Chepe Talamantes [address] [place] [address] Re : Colonoscopy procedure for Rossy Morin Dear Dr. Talamantes This procedure was performed on Thursday, December 12, 2024. My impressions and recommendations are as follows: Impressions : - The entire examined colon is normal on direct and retroflexion views. - Diverticulosis in the sigmoid colon. - No specimens collected. Recommendations : - Discharge patient to home. - Resume previous diet. - Continue present medications. - Repeat colonoscopy is not recommended due to current age (66 years or older) for screening purposes. My findings are described in the full procedure note, which is enclosed. If I can be of further assistance, please feel free to contact me at Doctor phone number(s): , Work: . Sincerely, Pollo Gibbons MD 12/12/2024 9:05:40 AM This report has been signed electronically.
--- NOTE | 2024-12-12 09:06 | OP.COLON_ITS ---
Patient Name: Rossy Morin Procedure Date: 12/12/2024 8:31 AM Date of : 1955 Age: 69 Procedure: Colonoscopy Indications: Screening for colorectal malignant neoplasm Providers: Pollo Gibbons MD Medicines: Propofol per Anesthesia Patient Profile: This is a 69 year old female. Refer to note in patient chart for documentation of history and physical. Last Colonoscopy: 10 years ago. Complications: No immediate complications. Estimated blood loss: Minimal. Procedure: Pre-Anesthesia Assessment: - Prior to the procedure, a History and Physical was performed, and patient medications and allergies were reviewed. The patient's tolerance of previous anesthesia was also reviewed. The risks and benefits of the procedure and the sedation options and risks were discussed with the patient. All questions were answered, and informed consent was obtained. Prior Anticoagulants: The patient has taken no anticoagulant or antiplatelet agents. After reviewing the risks and benefits, the patient was deemed in satisfactory condition to undergo the procedure. After I obtained informed consent, the scope was passed under direct vision. Throughout the procedure, the patient's blood pressure, pulse, and oxygen saturations were monitored continuously. The pediatric colonoscope was introduced through the anus and advanced to the cecum, identified by appendiceal orifice and ileocecal valve. The colonoscopy was performed without difficulty. The patient tolerated the procedure well. The quality of the bowel preparation was good. The ileocecal valve, appendiceal orifice, and rectum were photographed. Scope In: 8:45:05 AM Scope Withdrawal Time 0 hours 6 minutes 21 seconds Scope Out: 9:02:45 AM Total Procedure Duration Time 0 hours 17 minutes 40 seconds Findings: The entire examined colon appeared normal on direct and retroflexion views. Multiple small and large-mouthed diverticula were found in the sigmoid colon. Impression: - The entire examined colon is normal on direct and retroflexion views. - Diverticulosis in the sigmoid colon. - No specimens collected. Recommendation: - Discharge patient to home. - Resume previous diet. - Continue present medications. - Repeat colonoscopy is not recommended due to current age (66 years or older) for screening purposes. Procedure Code(s): --- Professional --- 11239, Colonoscopy, flexible; diagnostic, including collection of specimen(s) by brushing or washing, when performed (separate procedure) Diagnosis Code(s): --- Professional --- Z12.11, Encounter for screening for malignant neoplasm of colon K57.30, Diverticulosis of large intestine without perforation or abscess without bleeding CPT copyright 2021 [employer]. All rights reserved. The codes documented in this report are preliminary and upon drawer liner review may be revised to meet current compliance requirements. Pollo Gibbons MD 12/12/2024 9:05:40 AM This report has been signed electronically. Number of Addenda: 0 Note Initiated On: 12/12/2024 8:31 AM
--- NOTE | 2024-12-12 09:11 | PCM.POST.ANE ---
Anesthesia: Postop Eval I Current Vital Signs Temperature: 98 F Pulse Rate: 96 Blood Pressure: 112/72 Respiratory Rate: 16 Pulse Ox: 94 Oxygen Delivery Method: Room Air Assessment Airway patent: Yes Spontaneous unlabored respirations: Yes Mental status: Asleep nausea: No Vomiting: No Anesthesia Complication: No Fluid Hydration Crystalloid volume administer (ml): 400 Total IV fluid infused: 400 Progress Note Anesthesia document: Postop Eval 1 completed: Yes
--- NOTE | 2024-12-12 10:47 | PCM.POSTANE2 ---
Anesthesia Postop Eval I Sum Postop Eval Completion status Anesthesia document: Postop Eval 1 completed: Yes Anesthesia Postop Eval I Summary Anesthesia Postop Eval I Summary: Anesthesia Postop Eval I: Assessment Summary Airway patent Yes 12/12/24 09:12 [email or web address] Spontaneous unlabored Yes 12/12/24 09:12 [email or web address] respirations Mental status Asleep 12/12/24 09:12 [email or web address] nausea No 12/12/24 09:12 [email or web address] Vomiting No 12/12/24 09:12 [email or web address] Anesthesia Postop Eval I: Fluid Summary Crystalloid volume administer 400 12/12/24 09:12 [email or web address] (ml) Colloids volume administered ( ml) Blood Product volume administered (ml) Total IV fluid infused 400 12/12/24 09:12 [email or web address] Anesthesia Postop Eval I: Summary Notes Anesthesia Complication No 12/12/24 09:12 [email or web address] Anesthesia Complication Comment: Post-operative progress note Anesthesia: Postop Eval II Evaluation Mental status: Awake and Calm Pain Level: 0 nausea: No Vomiting: No Complications Anesthesia Complication: No
== END 2024-12-12 10:03 | disposition home or self-care (01) ==
LOC: EN 07:26 → AC 07:27
PROVIDERS: PCP Family Medicine; Referring Provider Family Medicine; Visit Provider Surgery
PROC: 0DJD8ZZ Inspection of Lower Intestinal Tract, Via Natural or Artificial Opening Endoscopic (ICD-10-PCS; CPT 45378; principal; 2024-12-12 08:25)
DX: Z12.11 Encounter for screening for malignant neoplasm of colon (principal); K57.30 Diverticulosis of large intestine without perforation or abscess without bleeding; Z90.710 Acquired absence of both cervix and uterus; Z90.49 Acquired absence of other specified parts of digestive tract
CPT/HCPCS: 45378; J2405